=== PATIENT | female | born 1990 | race Caucasian/White ===

== ENCOUNTER 2016-10-02 19:49 | Emergency (ER) | payer OTHER ==
[~2016-10-02] VITALS: Ht 172.7 cm; Wt 90.9 kg
[2016-10-02 20:15] VITALS: BP 124/80; PULSE 131; RESP 16; O2SAT 100
--- NOTE | 2016-10-02 21:41 | ED.REPORT ---
HPI-Rash / Abscess Date of Service Oct 02, 2016 ED Provider: Julio C Brewer MD Pt is a 26 y/o female w/ a hx of IV drug abuse presenting to the ED c/o right calf pain secondary to rash onset this morning. The patient woke up today and noticed a red rash with swelling of the posterior right calf which is draining serosanguineous fluid. Pt denies fever, vomiting, myalgias. She lasted used drugs 4 days ago but did not inject into the site of swelling. She has been injecting for 6 months and has not previously had an abscess. Nursing Notes Stated Complaint: LEFT CALF PAIN Chief Complaint: Skin Rash/Abscess Nursing Notes Reviewed: Yes Allergies: Coded Allergies: codeine (Verified Allergy, Intermediate, hives, 10/02/16) Scheduled Cephalexin (Keflex) 500 Mg Capsule 500 MG PO QID Sulfamethoxazole/Trimeth 800-160 mg (Bactrim DS) 1 Each Tablet 1 TABLET PO BID General Time Seen by MD: 21:24 Chief Complaint Rash Hx Obtained From: Patient Arrived By: Walk-in Onset Occurred: 5 - 8 hours ago Symptom Duration: Since onset Location: : Lower extremity Quality: Painful Severity: Current: Moderate Severity: Maximum: Moderate Past Medical History Past Medical History IV drug abuse Past Surgical History None reported Smoking History Unknown if Ever Smoker Social History Drug Use: IV drugs Ambulatory Status Independent Review of Systems Constitutional: Denies: Chills, Fever Respiratory: Denies: Non-productive cough, Shortness of breath Cardiovascular: Denies: Chest pain, Dyspnea on exertion GI: Denies: Abdominal pain, Nausea, Vomiting Musculoskeletal: Reports: Extremity pain, Extremity swelling, Denies: Joint pain, Myalgia Skin: Reports Rash, Reports Swelling, Denies Itching Complete sys rev & neg: except as marked. Physical Exam Initial Vital Signs Vital Signs (First) Date Time Temp Pulse Resp B/P Pulse Ox O2 Delivery O2 Flow Rate FiO2 10/02/16 20:15 36.8 131 16 124/80 100 Room Air Initial VS: Reviewed, Vital signs abnormal Head / Eyes: Atraumatic, Normocephalic, PERRL ENT: Mucous membranes moist, Conjunctiva normal, No scleral icterus Neck: Supple, Full range of motion Respiratory: Breath sounds normal, Clear to auscultation, No respiratory distress Cardiovascular: Regular rate & rhythm, Heart sounds normal, Intact distal pulses Abdomen / GI: Soft, Non-tender Psychiatric: Mood/affect normal, Behavior normal, Normal thought content General/Constitutional: Awake, Alert, No acute distress, Cooperative, Not toxic appearing Appearance / Presentation: Positive: Uncomfortable Skin: Atraumatic, Warm, Dry Color / Condition: Positive: Rash present Rash / Lesion Notes: 5 x 5 cm area of diffuse erythema over right superior calf. No fluctuance. Very tender to touch. Re-Eval/Medical Decision Med Decision/Clinical Course 26-year-old female history of IV drug use with cellulitis possible early abscess left lower leg. There is no fluctuance. It is diffusely swollen and erythematous. Patient did not want an I&D at this time. She preferred trial of oral antibiotics. No systemic symptoms. She was given prescription for Bactrim and Keflex with return precautions. Re-Evaluation/Progress : Time of Eval: 21:53 Re-Evaluation/Progress Note: Pt rechecked. Informed pt of plan for treatment. Pt understands and agrees with plan for treatment. F/U instructions and RTER warnings given. All questions addressed. Counseled Regarding: Diagnosis, Need for follow-up, When/why to return to ED Discharge & Departure Impression: Primary Impression: Cellulitis Site of cellulitis: extremity Site of cellulitis of extremity: lower extremity Laterality: right Qualified Code: L03.115 - Cellulitis of right lower limb Additional Impression: IV drug abuse Disposition: Home Discharge Condition All VS Reviewed: Yes Condition: Stable Patient Instructions: Cellulitis (ED) Additional Instructions: Your rash is consistent with cellulitis, an infection of the skin. You chose to not have the area opened today. Cellulitis sometimes progresses towards abscesses especially in cases of injection drug use. I recommend you not use IV drugs. If you do choose to inject, you should make sure the injection site is sterile. Take the antibiotics as directed. Return to the emergency department if you develop fever, chills, body aches, vomiting, increasing size of the rash, if an abscess develops, increased swelling, increased pain, or for other concerning symptoms. It is important that you return if you do not improve with antibiotics as this can spread quickly. Follow-up with a primary care doctor on Wednesday. If you do not have on the [facility] would be happy to see you. Referrals: [facility] Scribe Attestation Portions of this note were transcribed by Jake Stone. I, Dr. Brewer personally performed the history, physical exam and medical decision-making; I reviewed and confirmed the accuracy of the information in the transcribed note. Signed by Harika Reyes, 10/02/16 - 2199 Julio C Brewer MD Oct 02, 2016 21:41 JAKE STONE Oct 02, 2016 21:48
[2016-10-02] MEDS ORDERED: SULF1TAB7 PO (21:51)
[2016-10-02] MEDS ORDERED: CEPH-512 PO (21:51)
[2016-10-02] MEDS ORDERED: Cephalexin Suspension 250 mg/5 mL 100 mL Suspension PO ONE (22:00)
[2016-10-02] MEDS ORDERED: Trimethoprim-Sulfa 160 mg-800 mg Tablet PO ONE (22:00)
[2016-10-02 22:13] VITALS: BP 142/67; PULSE 118; RESP 18; O2SAT 100
== END 2016-10-02 22:15 | disposition home or self-care (01) ==
LOC: SED 19:49
DX: L03.115 Cellulitis of right lower limb (principal); F19.10 Other psychoactive substance abuse, uncomplicated; Z88.5 Allergy status to narcotic agent

== ENCOUNTER 2016-11-03 01:38 | Inpatient (IN) | payer OTHER ==
[~2016-11-03] VITALS: Ht 172.7 cm; Wt 99.0 kg
[2016-11-03] VITALS (14 sets, daily range): BP systolic 91–142; BP diastolic 36–92; PULSE 84–125; RESP 16–20; O2SAT 93–100
[~2016-11-03 01:38] MED LIST: CEPH-512 PO; SULF1TAB7 PO
--- NOTE | 2016-11-03 02:12 | ED.REPORT ---
HPI-Rash / Abscess Date of Service Nov 03, 2016 ED Provider: Shaq Villegas MD Patient is a 26 year old female with a history of IV drug abuse and cellulitis who presents to the ED with an abscess to her left breast onset 5 days ago. Patient states that she first noticed redness of the inside of her breast, consistent with cellulitis. Two days days she noticed a blister on her inner breast, which is now draining fluid. Her redness has spread since onset and become painful. Patient reports taking some leftover Clindamycin at home and 800mg Ibuprofen at 0030. The patient was seen in the ED on October 02 for RLE cellulitis, and was started on Bactrim and Keflex. She admitted to IV heroin and methamphetamine abuse at that time but states that her infection was not associated with an injection site. Initially the patient did not admit to IV drug use during her visit today, however she did eventually admit to using heroin and methamphetamine. She states that she has only been using IV drugs for the past 6 months. The Patient is not currently or . Nursing Notes Stated Complaint: POSS CELLULITIS Chief Complaint: Skin Rash/Abscess Nursing Notes Reviewed: Yes Allergies: Coded Allergies: codeine (Verified Allergy, Intermediate, hives, 10/02/16) Scheduled Cephalexin (Keflex) 500 Mg Capsule 500 MG PO QID Sulfamethoxazole/Trimeth 800-160 mg (Bactrim DS) 1 Each Tablet 1 TABLET PO BID General Time Seen by MD: 02:09 Chief Complaint Abscess Hx Obtained From: Patient Arrived By: Walk-in Onset Occurred: 5 days ago Symptom Duration: Since onset Location: : Chest (breast) Quality: Painful Severity: Current: Moderate Severity: Maximum: Moderate Recent Healthcare: Recent doctor visit Similar Sx Previous: Yes Past Medical History Past Medical History IV drug abuse cellulitis Past Surgical History None reported Smoking History Unknown if Ever Smoker Social History Drug Use: IV drugs Other Social History: Good social support, Local resident Ambulatory Status Independent Review of Systems Constitutional: Denies: Chills, Fever Skin: Reports Rash (abscess left breast), Reports Swelling Complete sys rev & neg: except as marked. Physical Exam Initial Vital Signs Vital Signs (First) Date Time Temp Pulse Resp B/P Pulse Ox O2 Delivery O2 Flow Rate FiO2 11/03/16 01:42 36.9 125 18 142/92 100 Room Air Initial VS: Reviewed, Vital signs abnormal Head / Eyes: Atraumatic, Normocephalic, PERRL ENT: Conjunctiva normal, No scleral icterus Neck: Supple, Full range of motion Neurologic: Alert, Oriented, Nonfocal Psychiatric: Mood/affect normal, Behavior normal, Normal thought content General/Constitutional: Awake, Alert, No acute distress Skin: Warm, Dry Abscess Notes: Lower half of the left breast is erythematous. Inner lower quadrant of the left breast has induration and abscess, with breakdown of skin oozing purulent material. Difficult on examination to tell how deep the abscess extends. ENT: Airway patent Dental / Gums: Positive: Decay extensive, Dentition poor Respiratory / Chest: Breath sounds NL, Breath sounds = bilat, No respiratory distress, No rales, No rhonchi, No wheezing Cardiovascular: Regular rhythm, Heart sounds NL, No murmurs Heart Rate / Rhythm: Positive: Tachycardia Interpretation & Diagnostics Interpretation & Diagnostics: Urine Tox Dip: Positive for Marijuana, Methamphetamine, Opiates, Oxycodone, and Amphetamines. Lab Results Interpretation Result Diagram: 11/03/16 0213 11/03/16 0213 Test 11/03/16 01:55 11/03/16 02:13 Hold Urine Received (Received) White Blood Count 10.0th/mm3 (3.8-10.1) Red Blood Count 4.60mil/mm3 (3.90-5.20) Hemoglobin 12.3g/dL (12.0-15.6) Hematocrit 38.1% (35.0-46.0) Mean Corpuscular Volume 82.8fL (81-100) Mean Corpuscular Hemoglobin 26.7pg (27.0-35.0) Mean Corpuscular Hemoglobin Concent 32.3% (32.0-37.0) Red Cell Distribution Width 13.8% (12.3-15.4) Platelet Count 367bil/L (150-400) Neutrophils (%) (Auto) 63.5% (40-74) Lymphocytes (%) (Auto) 26.1% (14-46) Monocytes (%) (Auto) 8.4% (4-12) Eosinophils (%) (Auto) 1.6% (0-5) Basophils (%) (Auto) 0.2% (0-3) Sodium Level 138mEq/L (134-144) Potassium Level 3.8mEq/L (3.5-5.2) Chloride Level 98mEq/L (97-108) Carbon Dioxide Level 23mmol/L (18-29) Blood Urea Nitrogen 9mg/dL (6-20) Creatinine 0.49mg/dL (0.57-1.00) Estimat Glomerular Filtration Rate 220mL/min (>59) Glucose Level 106mg/dL (60-99) Lactic Acid Level 0.9mmol/L (0.4-2.0) Calcium Level 9.0mg/dL (8.5-10.1) Total Bilirubin 0.7mg/dL (0.0-1.2) Aspartate Amino Transf (AST/SGOT) 65U/L (0-50) Alanine Aminotransferase (ALT/SGPT) 68U/L (0-32) Alkaline Phosphatase 88U/L (25-150) Total Protein 7.6g/dL (6.4-8.4) Albumin 3.8g/dL (3.4-5.0) Re-Eval/Medical Decision Med Decision/Clinical Course 26-year-old female who uses IV methamphetamine and heroin. She presents now with infected left breast with a draining abscess. She is tachycardic but not febrile. Her white count and lactic acid are not elevated. IV access was obtained her labs were drawn and she was sent for contrast CT scan to delineate the extent of the abscess in the pectoral area. The IV blew and we were unable to get another IV and because of her extensive IV drug use. Her case was discussed with Dr. Mikey Goodwin, surgeon, and Dr. Lang, hospitalist. She will be admitted to the hospital service with surgical consultation. She will stay in the emergency room until IV access is obtained by IV therapy and she has her CT done. It is anticipated that surgery will drain her abscess either at the bedside or in the OR depending upon the findings of the physical exam and CT scan. She was also given a referral card to [facility] with the priority access line phone number. Source of Hx: Old records Re-Evaluation/Progress : Time of Eval: 05:55 Patient Status: Condition improved Re-Evaluation/Progress Note: Rechecked the patient. The patient's line infiltrated and CT scan of her chest has not yet been obtained. She will receive a PICC line. Patient will be admitted to the hospital for further care, started on IV antibiotics. Patient understands and agrees with this plan. Spoke to her about her IV heroin abuse. Discussed Suboxone therapy and referral to [facility]. All questions were addressed. Consultation #1: Referral / Consult Name: Mikey Goodwin MD Consulted With: Surgeon Call Returned at: 05:43 Senior Center Manager: Will see patient, Agrees with eval, Agrees with plan Note: Spoke with Dr. Goodwin, surgeon, who agrees to act as consult during the patient's hospital admission. He will see the patient this morning. Consultation #2: Referral / Consult Name: Sandra Lang DO Consulted With: Hospitalist Call Returned at: 05:52 Senior Center Manager: Will see patient, Agrees with eval, Agrees with plan, Accepts admit Note: Spoke with Dr. Lang, hospitalist, who agrees to accept admit. Counseled Regarding: Diagnosis, Lab results, Need for admission Discharge & Departure Impression: Primary Impression: Left breast abscess Additional Impression: IV drug abuse Disposition: ADMITTED TO HOSPITAL Discharge Condition All VS Reviewed: Yes Condition: Stable Scribe Attestation Portions of this note were transcribed by Gilda Aceves. I, Dr. Villegas personally performed the history, physical exam and medical decision-making; I reviewed and confirmed the accuracy of the information in the transcribed note. Signed by: Harika Chun, 11/03/2016 0607 Shaq Villegas MD Nov 03, 2016 02:11 Gilda Aceves Nov 03, 2016 02:22
[2016-11-03 02:21] LABS: BASOPHILS % (AUTO) 0.2 % (0-3); EOSINOPHILS % (AUTO) 1.6 % (0-5); MONOCYTES % (AUTO) 8.4 % (4-12); Mean Corpuscular Hemoglobin 26.7 pg (27.0-35.0); Mean Corpuscular Volume 82.8 fL (81-100); NEUTROPHILS % (AUTO) 63.5 % (40-74); Platelet Count 367 bil/L (150-400)
[2016-11-03] MEDS ORDERED: Vancomycin Dose per Pharmacist XX ONE (02:32)
[2016-11-03] MEDS ORDERED: Vancomycin Inj 2,000 MG in 0.9% Sodium Chloride 500 ML IV ONE (02:35)
[2016-11-03] MEDS ORDERED: HYDROmorphone 0.5 mg/0.5 mL iSecure Syringe IVPUSH PRN (03:20)
[2016-11-03] MEDS ORDERED: Piperacillin-Tazo 3.375 Gm Inj 3.375 GM in Dextrose 5% Minibag Plus 50 ML IV ONE (03:20)
[2016-11-03] MEDS ORDERED: Clindamycin Inj 900 MG in IV Premix 1 EACH IV ONE (06:35)
[2016-11-03] MEDS ORDERED: Meropenem Inj 2,000 MG in IV Premix 1 EACH IV ONE (06:35)
[2016-11-03] MEDS ORDERED: HYDROmorphone 1 mg/mL Inj IM ONE (08:15)
--- NOTE | 2016-11-03 08:57 | PCM.CONSUR ---
Subjective Date of Service: Nov 03, 2016 History of Present Illness Patient is a 26 year old female with a history of IV drug abuse and cellulitis who presents to the ED with an abscess to her left breast onset 5 days ago. Patient states that she first noticed redness and irritation on the inside of her breast for 3 days. Two days ago she noticed a blister on her inner breast about the size of a nickel and bright red. Patient reports taking some leftover Clindamycin at home and 800mg Ibuprofen at 0030. The patient was seen in the ED on October 02 for RLE cellulitis, and was started on Bactrim and Keflex. She admitted to IV heroin and methamphetamine abuse at that time but states that her infection was not associated with an injection site. She states that she has only been using IV drugs for the past 6 months. The Patient is not currently or . The abscess measures approximately 7cm x 7xm with crusted surface and active weeping. There is diffuse erythema of most of the lower breast on the left side. She states it is very painful. She denies fever, chills, nausea, vomiting , dizziness, shortness of breath. She reports thirst. Reason for Consultation Left breast abscess. Allergy Allergies: Coded Allergies: codeine (Verified Allergy, Intermediate, hives, 11/03/16) Medications Hypertension Medication: No Home Meds Incl Beta Blockers: No No Active Prescriptions or Reported Meds Past Surgical History Surgeries: No Patient/Family Past Surgical: Denies:: Anesthesia Reactions, Blood Transfuse Reaction, Blood Transfusions, Malignant Hyperthermia Social History Occupation: Unemployed. Hx Alcohol Use: No Hx Substance Use: Yes (multiple drugs) PMH Cardiovascular History Cardiovascular History: Denies:: Congestive Heart Failure Hypertension Respiratory Respiratory History: Denies:: Tuberculosis Other History Diabetes: No Social History Hx Alcohol Use: NoHx Substance Use: Yes (multiple drugs)Hx Tobacco Use: No Smoking Status: Unknown if Ever Smoker Family History Family History: Patients mother is adopted and is not aware of any family medical conditions. Objective Exam Vital Signs & I/O Vital Sign- Last 8 Hours Date Time Temp Pulse Resp B/P Pulse Ox O2 Delivery O2 Flow Rate FiO2 11/03/16 06:39 37.2 88 18 142/74 98 Room Air 11/03/16 04:27 36.7 84 16 128/82 98 Room Air 11/03/16 01:42 36.9 125 18 142/92 100 Room Air Lab & Micro Results Laboratory Tests Test 11/03/16 01:55 11/03/16 02:13 Hold Urine Received (Received) White Blood Count 10.0th/mm3 (3.8-10.1) Red Blood Count 4.60mil/mm3 (3.90-5.20) Hemoglobin 12.3g/dL (12.0-15.6) Hematocrit 38.1% (35.0-46.0) Mean Corpuscular Volume 82.8fL (81-100) Mean Corpuscular Hemoglobin 26.7pg (27.0-35.0) Mean Corpuscular Hemoglobin Concent 32.3% (32.0-37.0) Red Cell Distribution Width 13.8% (12.3-15.4) Platelet Count 367bil/L (150-400) Neutrophils (%) (Auto) 63.5% (40-74) Lymphocytes (%) (Auto) 26.1% (14-46) Monocytes (%) (Auto) 8.4% (4-12) Eosinophils (%) (Auto) 1.6% (0-5) Basophils (%) (Auto) 0.2% (0-3) Sodium Level 138mEq/L (134-144) Potassium Level 3.8mEq/L (3.5-5.2) Chloride Level 98mEq/L (97-108) Carbon Dioxide Level 23mmol/L (18-29) Blood Urea Nitrogen 9mg/dL (6-20) Creatinine 0.49mg/dL (0.57-1.00) Estimat Glomerular Filtration Rate 220mL/min (>59) Glucose Level 106mg/dL (60-99) Lactic Acid Level 0.9mmol/L (0.4-2.0) Calcium Level 9.0mg/dL (8.5-10.1) Total Bilirubin 0.7mg/dL (0.0-1.2) Aspartate Amino Transf (AST/SGOT) 65U/L (0-50) Alanine Aminotransferase (ALT/SGPT) 68U/L (0-32) Alkaline Phosphatase 88U/L (25-150) Total Protein 7.6g/dL (6.4-8.4) Albumin 3.8g/dL (3.4-5.0) Microbiology 11/03/16 Blood Culture, Received Pending 11/03/16 Gram Stain, Received Pending 11/03/16 Culture & Sensitivity, Received Pending Result Diagram: 11/03/16 0213 11/03/16 0213 Review of Systems: A comprehensive review of systems was conducted with the patient and found to be negative except as above in the History of Present Illness. H&P Surgical Exam Exam Additional Information General: Pt is awake in bed, obese and Well-developed. Appropriately interactive , HEENT: Normocephalic, atraumatic. External ears without defect. Pupils equal, round, responsive. Oropharynx free of erythema with moist mucosa. poor oral health with mild decayed dentation. Cardiovascular: Mildly tachycardic rate with normal rhythm with no murmurs, rubs , or gallops appreciated Pulmonary: Clear to auscultation bilaterally with no crackles, wheezes, or rhonchi. Normal respiratory effort with no use of accessory muscles. Abdomen: Bowel tones present. Soft, nontender, nondistended. No hepatosplenomegaly or masses appreciated. Extremities: No clubbing, cyanosis, edema, or lymphadenopathy appreciated. Skin: Normal temperature, turgor, and texture; no rash, ulcers, or subcutaneous nodules appreciated. Neurological: Cranial nerves grossly intact. Normal muscle strength, tone, and bulk. Reflexes, coordination, and sensory function within normal limits. No known gait impairment. Psychiatric: Normal mood and affect. Alert and oriented to person, place, and time. Breast: Left breast 7cm x 7cm circular abscess with crusted and weeping surface. Erythema of most of lower left breast. Assessment & Plan Assessment Medial aspect of lower Left Breast abscess. Hx of IV drug use. Hx of Methamphetamine use. Plan: Recommend Incision and drainage with general anesthesia. Vitals Within normal limits. No allergies reported. With followup IV antibiotics managed by the medicine team. Resuscitation Status: CPR: Attempt Resuscitation Attending Statement: I personally examined the pt and I agree with Dr. Rogers's assessment and plan. To OR for I & D. CHAKA ROGERS DO Nov 03, 2016 08:38 Mikey Goodwin MD Nov 05, 2016 08:05
--- NOTE | 2016-11-03 10:00 | DRSVH ---
PROCEDURE: X-RAY CHEST ONE VIEW, PORTABLE ([id number]) INDICATIONS: central line placement TECHNIQUE: One view of the chest was acquired. COMPARISON: None. FINDINGS: Surgical changes and devices: There is a right-sided central line catheter with the tip overlying the low superior vena cava near the right atrial junction. Lungs and pleura: No pleural effusions or pneumothorax. Lungs are clear. Mediastinum: Mediastinal contours appear normal. Heart size is normal. Bones and chest wall: No suspicious bony lesions. Overlying soft tissues appear unremarkable. IMPRESSION: 1. Right-sided central line catheter is position with the tip overlying the atriocaval junction. 2. No pneumothorax. Dictated by: Migue Maravilla M.D. on 11/03/2016 at 8:57 Approved by: Migue Maravilla M.D. on 11/03/2016 at 8:58
--- NOTE | 2016-11-03 10:41 | PCM.PROC ---
Procedure Note Date of Service: Nov 03, 2016 Pre Procedure Diagnosis: Central venous access into Right Internal jugular Vein. Post Procedure Diagnosis: Central venous access of right Internal jugular vein. Procedure: Central venous line placement in Right IJ. Provider and Supervisor Belt And Link Assembly: Provider Dr. Theo Turner Supervisor Belt And Link Assembly: Dr. Josué Romo, PGY1 IM. Indication for Procedure: Central IV access and IV antibiotics. Procedural Analgesia: 1% Subcutaneous Lidocaine. Procedure Details: Date: 11/03/2016 Time: 0900 Indication: Hemodynamic monitoring/Intravenous access Resident: Dr. Josué Romo Attending: Dr. Theo Turner Procedure and site verified Patient was placed prone and in Trendelenburg position with chin rotated ~20 degrees left and appropriate for right sided internal jugular vein cannulation. Central line kit was opened and prepared. Patient was prepped and draped in the usual sterile fashion. 1% Lidocaine was used to anesthetize the surrounding skin area. A triple lumen 9-Mexican catheter was introduced into the right internal jugular vein using the Seldinger technique and under ultrasound guidance. The catheter was threaded smoothly over the guide wire and appropriate dark nonpulsatile blood return was obtained. Each lumen of the catheter was evacuated of air, aspirated of blood, and flushed with sterile saline. The catheter was then secured to the skin and a sterile dressing applied. Perfusion to the extremity distal to the point of catheter insertion was checked and found to be adequate. Dr. Theo Turner and Dr. Josué Romo was present for the entire procedure. Chest X-ray following the procedure was negative for pneumothorax, hemothroax and showed appropriate IJ catheter placement without crossing midline or entering the right atrium with verification by on-call radiologist. Estimated Blood Loss: ~ 10ml. The patient tolerated the procedure well and there were no complications. JOSUÉ ROMO DO Nov 03, 2016 10:10 Brigido Turner DO Nov 03, 2016 14:26
[2016-11-03] MEDS ORDERED: Polyethylene Glycol (PEG) 17 Gm Powder PO PRN (11:35)
[2016-11-03] MEDS ORDERED: Alum-Mag Hydrox-Simeth 30 mL Suspension PO PRN (11:35)
[2016-11-03] MEDS ORDERED: Ondansetron 2 mg/mL 2 mL Inj IVPUSH PRN ×2 (11:35→13:00)
--- NOTE | 2016-11-03 11:45 | NUR ---
Admit Pt admitted to floor. A&Ox3. Pt is able to ambulate. Currently c/o left breast pain at 8/10. Hospitalist in room and Toradol IV ordered for pain. Bed locked in low position and call light within reach. Will continue to monitor.
[2016-11-03] MEDS ORDERED: Lactated Ringer's 500 ML IV PRN (12:56)
[2016-11-03] MEDS ORDERED: Lactated Ringer's 1,000 ML IV SCH (12:56)
[2016-11-03] MEDS ORDERED: Lactated Ringer's 1,000 ML IV ONE ×2 (12:56→13:02)
--- NOTE | 2016-11-03 12:56 | PCM.HPANE ---
Patient Data Date of Service: Nov 03, 2016 Surgeon Admitting Provider:Sandra Lang DO Attending Provider:Sandra Lang DO Primary Care Physician:Nopcp Other Provider: Reason for Visit Left Breast Abscess Ht/WT & BMI Height (Feet): 5 Height (Inches): 8.00 Weight (Kilograms): 99.000 Body Mass Index 33.08 Allergies Coded Allergies: codeine (Verified Allergy, Intermediate, hives, 10/02/16) Past Anesthesia History Anesthesia History: Denies:: Anesthesia Reactions, Malignant Hyperthermia Diabetes History Hx Diabetes?: No Medications Hypertension Medication: No Home Meds Incl Beta Angie: No Active Scripts Cephalexin (Keflex)500 Mg [id number] Mg PO QID 10 Days Prov:Julio C Brewer MD 10/02/16 Sulfamethoxazole/Trimeth 800-160 mg (Bactrim DS)1 Each Tablet1 Tablet PO BID # 20 TABLET Prov:Julio C Brewer MD 10/02/16 History Hx of Heart Problems?: No Cardiovascular History: Denies:: Congestive Heart Failure Hypertension Hx of Respiratory Problem?: No Respiratory History: Denies:: Tuberculosis Hx Neurologic Problems?: No Hx Surgeries?: No History Blood Transfusions: Positive for:: Accept Blood Products? Blood Transfuse Reaction Denies:: Blood Transfusions Hx Diabetes: No Occupation: Unemployed. Hx Alcohol Use: NoHx Substance Use: Yes (Heroin, meth, THC) Smoking Status: Unknown if Ever Smoker Have You Smoked inLast 12 mo: No Stop/Bang Risk Assessment Category Category 1A: Patient has history of documented sleep apnea, and HAS NOT received any narcotic, sedative or anesthesia administration during this stay. Category 1B: Patient has history of documented sleep apnea, and HAS received any narcotic , sedative or anesthesia administration during this stay Category 2: Patient has SUSPECTED Obstructive Sleep Apnea, and HAS received any narcotic , sedative or anesthesia administration during this stay. Category 3: Patient has SUSPECTED Obstructive Sleep Apnea and HAS NOT received narcotic, sedative or anesthesia administration during this stay. Category 4: Outpatient in Procedural Areas with known sleep apnea or who screen positive for High Risk via the STOP/BANG questionnaire. Exam Exam Vital Signs Vital Signs Date Time Temp Pulse Resp B/P Pulse Ox O2 Delivery O2 Flow Rate FiO2 11/03/16 11:30 36.7 107 20 124/83 100 Room Air 11/03/16 06:39 37.2 88 18 142/74 98 Room Air General Appearance: Alert, Oriented X3, Cooperative, Moderate Distress (pain 8/ 10 now) HEENT/AIRWAY: MP 2, Other (very poor dentition) Lungs: Normal Air Movement Heart: Exam Unremarkable Meds/Labs/Diagnostics Admission Meds Current Medications Pharmacy Consult 1 ea 1 ea ONCE ONCE XX Last administered on 11/03/16 03:12; Start 11/03/16 at 02:32; Stop 11/03/16 at 02:33; Status DC Vancomycin HCl 2000 mg/Sodium Chloride 500 ml @ 250 mls/hr ONCE ONCE IV Last administered on 11/03/16 03:12; Start 11/03/16 at 02:35; Stop 11/03/16 at 04:34 ; Status DC Piperacillin Sod/ Tazobactam Sod 3.375 gm/Dextrose/ Water 50 ml @ 100 mls/hr ONCE ONCE IV Last administered on 11/03/16 03:43; Start 11/03/16 at 03:20; Stop 11/03/16 at 06:33; Status DC Clindamycin Phosphate/ Dextrose/Premix (Cleocin Inj/IV Premix) 50 ml @ 100 mls/ hr ONCE ONCE IV Last administered on 11/03/16 10:34; Start 11/03/16 at 06:35 ; Stop 11/03/16 at 07:04; Status DC Labs Test 11/03/16 01:55 11/03/16 02:13 Hold Urine Received (Received) White Blood Count 10.0th/mm3 (3.8-10.1) Red Blood Count 4.60mil/mm3 (3.90-5.20) Hemoglobin 12.3g/dL (12.0-15.6) Hematocrit 38.1% (35.0-46.0) Mean Corpuscular Volume 82.8fL (81-100) Mean Corpuscular Hemoglobin 26.7pg (27.0-35.0) Mean Corpuscular Hemoglobin Concent 32.3% (32.0-37.0) Red Cell Distribution Width 13.8% (12.3-15.4) Platelet Count 367bil/L (150-400) Neutrophils (%) (Auto) 63.5% (40-74) Lymphocytes (%) (Auto) 26.1% (14-46) Monocytes (%) (Auto) 8.4% (4-12) Eosinophils (%) (Auto) 1.6% (0-5) Basophils (%) (Auto) 0.2% (0-3) Sodium Level 138mEq/L (134-144) Potassium Level 3.8mEq/L (3.5-5.2) Chloride Level 98mEq/L (97-108) Carbon Dioxide Level 23mmol/L (18-29) Blood Urea Nitrogen 9mg/dL (6-20) Creatinine 0.49mg/dL (0.57-1.00) Estimat Glomerular Filtration Rate 220mL/min (>59) Glucose Level 106mg/dL (60-99) Lactic Acid Level 0.9mmol/L (0.4-2.0) Calcium Level 9.0mg/dL (8.5-10.1) Total Bilirubin 0.7mg/dL (0.0-1.2) Aspartate Amino Transf (AST/SGOT) 65U/L (0-50) Alanine Aminotransferase (ALT/SGPT) 68U/L (0-32) Alkaline Phosphatase 88U/L (25-150) Total Protein 7.6g/dL (6.4-8.4) Albumin 3.8g/dL (3.4-5.0) Plan Impression Patient chart reviewed, patient interviewed and anesthestic plan with risks, benefits, and alternatives discussed, and informed consent obtained. ASA Physical Status: ASA3 Severe Disease (IVDA) Anesthetic Plan: GA Bene/Risks/Altern/Consents: Yes HP Complete Prior to Induction: Yes Pro Lassiter MD Nov 03, 2016 12:56
[2016-11-03] MEDS ORDERED: fentaNYL-PF 50 mCg/mL 2 mL Inj IVPUSH PRN (13:00)
[2016-11-03] MEDS ORDERED: EPHEDrine Sulfate 50 mg/mL Inj IVPUSH PRN (13:00)
[2016-11-03] MEDS ORDERED: Dexamethasone 4 mg/mL Inj IVPUSH PRN (13:00)
[2016-11-03] MEDS ORDERED: Phenylephrine 10,000 mCg/mL Inj IVPUSH PRN (13:00)
[2016-11-03] MEDS ORDERED: Labetalol 5 mg/mL 4 mL Inj IV PRN (13:00)
[2016-11-03] MEDS ORDERED: MetoCLOpramide 5 mg/mL 2 mL Inj IVPUSH PRN (13:00)
[2016-11-03] MEDS ORDERED: Atropine 0.4 mg/mL Inj IVPUSH PRN (13:00)
[2016-11-03] MEDS ORDERED: Ondansetron 2 mg/mL 2 mL Inj ONE (13:42)
[2016-11-03] MEDS ORDERED: Dexamethasone 4 mg/mL Inj ONE (13:42)
[2016-11-03] MEDS ORDERED: fentaNYL-PF 50 mCg/mL 2 mL Inj ONE (13:42)
[2016-11-03] MEDS ORDERED: HYDROmorphone 2 mg/mL Inj ONE (13:42)
[2016-11-03] MEDS ORDERED: Propofol 10,000 mCg/mL 20 mL Inj ONE (13:42)
[2016-11-03] MEDS ORDERED: Lidocaine PF 1% 30 mL Inj ONE (13:42)
--- NOTE | 2016-11-03 13:51 | PCM.ANEP1 ---
Post Anesthesia Phase 1 PACU Phase 1 Assessment Date of Service: Nov 03, 2016 Vital Signs Vital Signs Date Time Temp Pulse Resp B/P Pulse Ox O2 Delivery O2 Flow Rate FiO2 11/03/16 11:30 36.7 107 20 124/83 100 Room Air 11/03/16 06:39 37.2 88 18 142/74 98 Room Air Anesthetic Administered: GA Level of Alertness: Drowsy, not talking Pain: No Nausea or Vomiting: No Airway Device: Oralpharangeal Airway Oxygen Delivery: Nasal Cannula Lungs: Normal Air Movement Pro Lassiter MD Nov 03, 2016 13:51
--- NOTE | 2016-11-03 14:09 | NUR ---
Item found in rubina area Skin assessment done in the OR after induction after multiple bruises and abrasions noted. During the skin assessment, it was noted that there was a wadded blue glove covered in a paper towel that was secured in a hair tie. The wadded item was tucked in between the patients legs in the rubina area of her underwear. Item was removed. Item was left unopened and placed in a specimen bag with a patient label. Charge nurse notified. Item was given to security who confirmed that is was drug paraphernalia.
--- NOTE | 2016-11-03 14:15 | PCM.ANEP2 ---
Post Anesthesia Evaluation ASA/CMS Post Anesthesia Date of Service: Nov 03, 2016 VS in Patient's Normal Range?: Yes Resp Stable; Airway Patent?: Yes CV Function & Hydration Stable: Yes Mental Status Recovered?: Yes Pain control Satisfactory?: Yes N/V Control Satisfactory?: Yes Pro Lassiter MD Nov 03, 2016 14:15
--- NOTE | 2016-11-03 14:18 | NUR ---
Social Work-attempted assessment/CD assessment: Data:EMR Reviewed. Pt is a 46 y/o female who was admitted on 10/31/16 for left leg cellulitis per H&P. Pt's insurance is [facility] and PCP is LEATHA Rodriguez. EMR reviewed. SW attempted to see pt today, but SW updated by RN that pt is currently in the OR having I&D. Pt has history of IV drug use, heroin and meth. SW to follow up with CD assessment when appropriate. SW will continue to follow. Assessment:Pt who is independent at baseline. Plan:SW to follow up with CD assessment tomorrow. SW will continue to follow. SHEBA Urrutia
[2016-11-03] MEDS ORDERED: Sodium Chloride LOK Flush 10 mL Syringe IVFLUSH PRN ×2 (16:50)
--- NOTE | 2016-11-03 17:27 | NUR ---
POST OP Patient returned to floor at 1445, from I/D of left breast abscess. LABS- AST 65, ALT 68, VSS NEURO- Initially drowsy but oriented x3. CVS- Sinus tach, 105,denies chest pain. PLUM-RA GI-Advance as tolerated, denies nausea. -BR voided 60ml SKIN- Left breast ABD c/d/i PAIN- 30mg Toradol 10/02 IVF-LR 125 IJ X3 PLAN- Continue IV antibiotics
[2016-11-03] MEDS: Vancomycin Dose per Pharmacist XX SCH (18:45)
--- NOTE | 2016-11-03 18:45 | PCM.HPMED ---
Subjective Date of Service Nov 03, 2016 Primary Provider: Admitting Physician: Sandra Lang DO Primary Care Physician: Javier Attending Physician: Sandra Lang DO Allergies Coded Allergies: codeine (Verified Allergy, Intermediate, hives, 11/03/16) PMH Social History Occupation: Unemployed. Hx Alcohol Use: No Hx Substance Use: Yes (multiple drugs) Hx Tobacco Use: No Smoking Status: Unknown if Ever Smoker Exam Vital Signs Vital Sign - Last Date Time Temp Pulse Resp B/P Pulse Ox O2 Delivery O2 Flow Rate FiO2 11/03/16 06:39 37.2 88 18 142/74 98 Room Air Lab and Diagnostics Result Diagram: 11/03/1621211/03/16212 Assessment & Plan HPI: Patient is a 26-year-old female who presented to the emergency room with the complaint of left breast pain. The patient states that for the last 5 days she has noticed an increasing lesion on her left breast with increasing warmth and redness. The patient stated that on day 3 she noticed a nickel-sized lesion that had pus coming from it she expressed the pus and she was told that this would help to improve the lesion. The patient stated that she did have some leftover clindamycin from her previous dental procedure and took 3 clindamycin pills with no improvement. The patient stated that today she noticed an increase in warmth and a significantly increased in size of the lesion and decided to come to the emergency room. The patient stated that she uses IV drugs however she has not injected into that breast but she did inject into the right breast. Patient reports that the left breast has had increasing tenderness to palpation. Patient denies any chest pain, shortness of breath, nausea, vomiting, diarrhea. Home medications: None Allergies: Codeine: With reaction of hives PMHx: None SHx: None FHx: Patients mother is adopted and is not aware of any family medical conditions father's history is also unknown , SocHx: Occupation: Unemployed Tobacco history: Patient denies Alcohol use: Patient denies Drug use: Patient reports usage of meth, heroin, marijuana ROS: A complete review of systems was performed or attempted to be performed. Please see HPI for pertinent positives, all other systems are negatives. Physical Exam: GEN: Patient was awake, alert, responding appropriately to questions HEENT: Pupils equal round and reactive to light, extraocular eye muscles intact , Neck soft supple, trachea midline, nomocephalic/atraumatic CV: +S1/S2, regular rate and rhythm, no murmurs auscultated Breast: Right breast positive ecchymoses secondary to needle injection, left breast significant erythema and edema with tenderness to palpation a 6 x 4 lesion was noted currently draining purulent fluid Respiratory: CTAB, no wheezes, rales, rhonchi GI: +bowel sounds x4, soft, compressible, nontender to palpation EXT: no clubbing, cyanosis, edema Neuro: Cranial nerves II-XII grossly intact Psych: mood and affect were appropriate Assessment and Plan 26-year-old female current IV drug user presents with a left breast abscess Left breast abscess -IV meropenem, clindamycin, Zosyn, and vancomycin one-time dose given in the ED -Continue Zosyn and vancomycinzo -CT of the left breast -IV Toradol for pain control -MRSA screen -Consult general surgery (Dr. Goodwin) for possible I&D -Consult infectious disease (Dr. Dee) -Continue to monitor IV drug abuse -nutrition worker to follow this patient has expressed a desire to quit drug abuse Diet: Regular DVT prophylaxis: Lovenox Code Status: Full code Resuscitation Status: CPR: Attempt Resuscitation Viv Casey DO Nov 03, 2016 11:38
--- NOTE | 2016-11-03 19:47 | PCM.CONPHA ---
Subjective Date of Service: Nov 03, 2016 Requesting Provider: Viv Casey DO Reason for Pharmacy Consult: Vancomycin Dosing Objective Vital Signs Date Time Temp Pulse Resp B/P Pulse Ox O2 Delivery O2 Flow Rate FiO2 11/03/16 15:23 36.3 105 16 115/81 99 11/03/16 14:29 100 18 129/60 94 Room Air 11/03/16 14:14 102 16 122/49 100 Room Air 11/03/16 14:10 105 17 117/49 100 Room Air 11/03/16 14:06 36.7 100 16 104/42 96 Simple Mask 8 11/03/16 14:00 101 16 100/42 96 Simple Mask 8 11/03/16 13:55 102 16 100/40 96 Simple Mask 8 11/03/16 13:51 Nasal Cannula 11/03/16 13:50 102 17 95/39 95 Simple Mask 8 11/03/16 13:45 36.4 104 16 91/36 93 Simple Mask 8 11/03/16 11:30 36.7 107 20 124/83 100 Room Air 11/03/16 06:39 37.2 88 18 142/74 98 Room Air 11/03/16 04:27 36.7 84 16 128/82 98 Room Air 11/03/16 01:42 36.9 125 18 142/92 100 Room Air Weight (Kilograms): 99.000 Height (Feet): 5 Height (Inches): 8.00 Test 11/03/16 01:55 11/03/16 02:13 Hold Urine Received (Received) White Blood Count 10.0th/mm3 (3.8-10.1) Red Blood Count 4.60mil/mm3 (3.90-5.20) Hemoglobin 12.3g/dL (12.0-15.6) Hematocrit 38.1% (35.0-46.0) Mean Corpuscular Volume 82.8fL (81-100) Mean Corpuscular Hemoglobin 26.7pg (27.0-35.0) Mean Corpuscular Hemoglobin Concent 32.3% (32.0-37.0) Red Cell Distribution Width 13.8% (12.3-15.4) Platelet Count 367bil/L (150-400) Neutrophils (%) (Auto) 63.5% (40-74) Lymphocytes (%) (Auto) 26.1% (14-46) Monocytes (%) (Auto) 8.4% (4-12) Eosinophils (%) (Auto) 1.6% (0-5) Basophils (%) (Auto) 0.2% (0-3) Sodium Level 138mEq/L (134-144) Potassium Level 3.8mEq/L (3.5-5.2) Chloride Level 98mEq/L (97-108) Carbon Dioxide Level 23mmol/L (18-29) Blood Urea Nitrogen 9mg/dL (6-20) Creatinine 0.49mg/dL (0.57-1.00) Estimat Glomerular Filtration Rate 220mL/min (>59) Glucose Level 106mg/dL (60-99) Lactic Acid Level 0.9mmol/L (0.4-2.0) Calcium Level 9.0mg/dL (8.5-10.1) Total Bilirubin 0.7mg/dL (0.0-1.2) Aspartate Amino Transf (AST/SGOT) 65U/L (0-50) Alanine Aminotransferase (ALT/SGPT) 68U/L (0-32) Alkaline Phosphatase 88U/L (25-150) Total Protein 7.6g/dL (6.4-8.4) Albumin 3.8g/dL (3.4-5.0) Assessment/Plan Assessment/Plan Vanco per Rx Indication: Cellulitis; MRSA? Vanco Trough Goal: 10 - 15; Vd 59.4 LD 200-mg given @0312; new order received this evening; will start 1500mg q8h eTrough @ SS: 13; 1st trough to be drawn @ 1900 tomorrow Stephen Molina PharmD Nov 03, 2016 19:47
[2016-11-03] MEDS: Vancomycin Inj 1,500 MG in 0.9% Sodium Chloride 500 ML IV SCH (20:25)
[2016-11-03] MEDS: HYDROmorphone 1 mg/mL Inj IVPUSH PRN (20:25)
--- NOTE | 2016-11-03 21:33 | DRSVH ---
PROCEDURE: CT CHEST WITH CONTRAST ([id number]) INDICATIONS: large breast abscess, ? pectoralis extension TECHNIQUE: After the administration of intravenous contrast, 5 mm thick sections acquired from the pulmonary api moni to the posterior costophrenic angles. 7 mm thick coronal and sagittal MIP reformats were acquire d. For radiation dose reduction, the following was used: automated exposure control, adjustment of mA and/or kV according to patient size. COMPARISON: None. FINDINGS: Image quality: Excellent. Lungs and pleura: Patchy opacities are present at the left apex. A the lungs are otherwise clear. No pleural effusion or pneumothorax. Mediastinum: Heart size is normal. No pericardial effusion. No mediastinal or hilar adenopathy by size criteria. Thoracic aorta and central pulmonary arteries are normal in size. Esophagus is wai l in caliber. No hiatal hernia. Bones and chest wall: There is a superficial defect within the skin overlying the upper inner quadra nt of the left breast. There is diffuse skin thickening of the left breast. There is no fluid collect ion amenable to percutaneous drainage. There is no extension into the deep subcutaneous fat or the un derlying pectoralis musculature. No suspicious bony lesions. No vertebral body compression fractures . No axillary or supraclavicular adenopathy by size criteria. Thyroid gland is unremarkable the. Abdomen: Visualized upper abdominal solid organs appear normal. Upper abdominal bowel loops are nor mal in caliber. IMPRESSION: 1. Superficial cutaneous and subcutaneous defect within the left breast with diffuse skin thickening throughout the breast. Given patient age, the skin thickening is likely secondary to infection; howev er underlying inflammatory neoplasm cannot be excluded and followup to resolution is recommended. The re is no fluid collection amenable to drainage. There is no extension into the underlying pectoralis musculature. 2. Trace patchy opacities at the left apex which may be associated with inflammation or infection. Fo wadewagus recommended. Dictated by: Daisha Thorpe M.D. on 11/03/2016 at 21:27 Approved by: Daisha Thorpe M.D. on 11/03/2016 at 21:31
[2016-11-03] MEDS: Piperacillin-Tazo 3.375 Gm Inj 3.375 GM in Dextrose 5% Minibag Plus 50 ML IV SCH (22:22)
--- NOTE | 2016-11-03 23:26 | OP ---
[address] [address] OPERATIVE REPORT PATIENT: YANCI DUDLEY : 1990 MR#: [id number] ADMIT: 11/03/2016 JOB ID: [id number] DATE OF SURGERY: 11/03/2016 SURGEON: Mikey Goodwin MD. POLITICAL DIRECTOR: Dr. Romo, resident. ANESTHESIA: General. PREOPERATIVE DIAGNOSIS(ES): Left medial breast abscess. POSTOPERATIVE DIAGNOSIS(ES): Left medial breast abscess. PRINCIPAL PROCEDURE: Incision and drainage of left medial breast abscess. INDICATION FOR PROCEDURE: The patient is a 26-year-old female with a left medial breast abscess which has spontaneously drained over the past day or two. The patient has never had a mammogram previously. PRINCIPAL FINDING: Successful I and D of a left medial breast abscess, aspirated pus was sent for cultures. The incision was approximately 4.7 cm in length. On palpation of her left breast, she does have a palpable lump at the 12 o'clock position of her left breast. This 12 o'clock position is far away from her medial breast abscess. PROCEDURE COURSE: The patient was brought to the operating table and was provided with general anesthesia. The patient was given IV antibiotics preoperatively and SCDs. A time-out was performed. The patient's left breast was then prepped and draped in the usual sterile fashion. Next, directly over the abscess site, percutaneous aspiration using an 18-gauge needle yielded pus. This was sent for cultures. Next, an incision was made in a periareolar fashion directly on top of the abscess and extended for approximately 4.7 cm in length. Dissection into the subcu was carried out bluntly and also using cautery. We explored the subcu and also into the breast tissue until we were sure there was no undrained pus. Irrigation of the abscess cavity was carried out. Hemostasis was controlled using cautery. There was some necrotic skin right at the apex of the abscess and these were trimmed and resected. Again, irrigation of the abscess cavity was performed. Next, the wound cavity was then packed with Kerlix gauze soaked in saline. Of note, on palpation of her left breast there is a palpable mass at the 12 o'clock position of her breast which is quite far from the abscess site. A sterile dressing was then placed over the wound. By the end of the procedure, needle counts and sponge counts were correct. The patient was then extubated and taken to the recovery room in stable satisfactory condition. AIDA
[2016-11-04] MEDS: HYDROmorphone 1 mg/mL Inj IVPUSH PRN ×4 (00:26→14:12)
[2016-11-04] MEDS: Vancomycin Inj 1,500 MG in 0.9% Sodium Chloride 500 ML IV SCH ×3 (03:03→19:58)
[2016-11-04 04:17] VITALS: PULSE 114
[2016-11-04 04:30] VITALS: BP 113/64; PULSE 110; RESP 16; O2SAT 99
[2016-11-04] MEDS: Piperacillin-Tazo 3.375 Gm Inj 3.375 GM in Dextrose 5% Minibag Plus 50 ML IV SCH ×3 (04:52→21:50)
[2016-11-04 05:24] LABS: Mean Corpuscular Hemoglobin 26.7 pg (27.0-35.0); Mean Corpuscular Volume 83.4 fL (81-100)
[2016-11-04] MEDS: Vancomycin Dose per Pharmacist XX SCH (08:39)
[2016-11-04 08:52] VITALS: BP 115/72; PULSE 113; RESP 18; O2SAT 98
--- NOTE | 2016-11-04 09:32 | PCM.PNSURG ---
Subjective Date of Service: Nov 04, 2016 Date of Service: Nov 04, 2016 Visit Information: Reason for Visit Left Breast Abscess Surgery/Surgery Date I&D L BREAST ABSCESS 11/03 Post-Op Day # Date of Admission: Nov 03, 2016 at 06:17 Hospital Day # Subjective: Patient states her pain is still significant 03/04, down from 9/10 on admission, but now more localized to the surgical lesion without radiation. She denies dizziness, nausea, vomiting, shortness of breath, fever, chills, abdominal pain , constipation, diarrhea, distal extremity pain. Patient reports 1 BM. Objective Objective General: Pt is awake in bed, obese and Well-developed. Appropriately interactive , HEENT: Normocephalic, atraumatic. External ears without defect. Pupils equal, round, responsive. Oropharynx free of erythema with moist mucosa. poor oral health with mild decayed dentation. Cardiovascular: Mildly tachycardic rate with normal rhythm with no murmurs, rubs , or gallops appreciated Pulmonary: Clear to auscultation bilaterally with no crackles, wheezes, or rhonchi. Normal respiratory effort with no use of accessory muscles. Abdomen: Bowel tones present. Soft, nontender, nondistended. No hepatosplenomegaly or masses appreciated. Extremities: No clubbing, cyanosis, edema, or lymphadenopathy appreciated. Skin: Normal temperature, turgor, and texture; no rash, ulcers, or subcutaneous nodules appreciated. Neurological: Cranial nerves grossly intact. Normal muscle strength, tone, and bulk. Reflexes, coordination, and sensory function within normal limits. No known gait impairment. Psychiatric: Normal mood and affect. Alert and oriented to person, place, and time. Breast: Left breast 6 cm incision, dry with minimal drainage. Packing intact. Diffuse breast erythema reduced from yesterday. Vital Sign- Last 8 Hours Date Time Temp Pulse Resp B/P Pulse Ox O2 Delivery O2 Flow Rate FiO2 11/04/16 08:52 37.4 113 18 115/72 98 Room Air 11/04/16 04:30 36.6 110 16 113/64 99 Room Air 11/04/16 04:17 114 Intake and Output- Last 8 Hour 11/04/16 Cumulative From/Thru 07:00 11/03/16 01:42 - 11/04/16 05:38 Intake Total 2055 ml 4400 ml Output Total 1860 ml 2470 ml Balance 195 ml 1930 ml Intake Oral 400 ml IV Total 2055 ml 4000 ml Output Urine Total 1860 ml 2460 ml Estimated Blood Loss 10 ml Result Diagram: 11/04/16 0510 11/04/16 0510 Assessment & Plan Impression Status post day 1 following I&D of left breast abscess on the lower medial aspect. Problems: Plan Continue standard post I&D management. Continue IV antibiotics Vanc and Zosyn with ID following. IV dilaudid only with dressing changes. Start PO [place] 10/325 mg Q4H jarad for 1 day. Wound care following. Hospitalist managing other medical conditions. Resuscitation Status: CPR: Attempt Resuscitation Attending Statement: I agree with Dr. Rogers's assessment and plan. CHAKA ROGERS DO Nov 04, 2016 09:32 Mikey Goodwin MD Nov 08, 2016 17:14
[2016-11-04] MEDS: HYDROcodone-APAP 10-325 mg PO SCH ×4 (10:04→22:33)
--- NOTE | 2016-11-04 10:14 | CONS ---
[address] [address] CONSULTATION REPORT PATIENT: YANCI DUDLEY : 1990 MR#: [id number] ADMIT: 11/03/2016 JOB ID: [id number] DATE OF SERVICE: 11/04/2016 REASON FOR CONSULTATION: Left breast abscess in an intravenous drug user. HISTORY OF PRESENT ILLNESS: I kindly thank Dr. Romo for this timely consult. The patient is a 26-year-old woman with longstanding history of heroin use. Initially, she was a heroin smoker, but several months ago converted to heroin injection, primarily into her arms, but occasionally into her legs. She denies ever injecting heroin into her breasts or mammary veins. She reports that about one week ago she developed the insidious onset of tenderness and swelling along her left medial breast. This progressively worsened in terms of the pain and swelling to the point that she sought evaluation and was admitted to this facility a day and a half ago. She was taken to the operating room for what appeared to be a large breast abscess, where she had incision and drainage performed by Dr. Goodwin. He placed a 5 cm incision and drained what was clearly an abscess. There was also some necrotic skin at the apex of the abscess which was trimmed and resected. Also noted was a breast mass which was quite a ways away from the abscess which he did not resect. Appropriate cultures were done and the patient has been maintained on vancomycin and Zosyn since her admission a day and a half ago. Interestingly, the patient reports that through this process she has had no fevers, chills, or sweats. No significant headache, sore throat, pulmonary or GI symptoms to go along with what has been a very localized, extremely painful process involving her medial left breast. She denies prior history of breast infections. She is not aware of any trauma, injury, bites, or other process which may have initiated this infection. PAST MEDICAL HISTORY: 1. Intravenous heroin use. 2. Left lower extremity cellulitis. No culture organisms were identified from that outpatient process. SOCIAL HISTORY: The patient is a nonsmoker, nondrinker. She is essentially homeless in the [facility], but she does state lately she has had a mobile home to stay in. FAMILY HISTORY: Vague, but as far she knows, no 1st or 2nd-degree relatives with history of TB, and her dad is said to have some form of cardiac disease. REVIEW OF SYSTEMS: Was done. No significant headache. No visual change. No sore throat. No cough, shortness of breath, chest pain, nausea, vomiting, diarrhea, dysuria, pain in the joints or pain in the lower extremities. Remainder of the review of systems is negative. PHYSICAL EXAMINATION: Reveals a slightly obese, young woman, lying in bed, in mild distress secondary to left breast pain. She has been afebrile since admission. Currently 37.4, pulse 110, respiratory rate 18, blood pressure 115/72. She is saturating well on room air. She is awake, alert, lucid and able to give an appropriate history. Head without trauma. Eyes without conjunctivitis or scleral icterus. Oral cavity, no thrush. No pharyngitis. Neck is supple without adenopathy. Lungs are clear. Cardiac tones regular rate and rhythm without murmur. Abdomen is soft, nontender, without organomegaly. She does not have a Leonard catheter. She does not have suprapubic tenderness. Does not have synovitis anywhere. No peripheral edema. No skin changes are noted and no skin breakdown except involving the left breast. The left medial breast has an approximately 5 cm long vertical medial incision which is packed. There is surrounding cellulitis which extends almost all the way to the nipple and almost all the way to the chest wall medially. There is no bullae or jesus alberto necrosis of this area. The entire area of the breast abscess is quite tender. Neurologically, the patient is completely intact. LABORATORIES: Include white count 10,000, without left shift. Creatinine 0.43. LFTs normal except for ALT 45. Urinalysis not done. MRSA screen negative. Blood cultures negative. Breast abscess material obtained during surgery is purulent with many polys and gram-positive cocci. Interestingly, there has been no growth yet on the plates, which raises the possibility, though not proven, that these could be anaerobic streps. The other possibility here is that these could easily represent so-called aerobic streps such as group A or group B strep. IMPRESSION: This unfortunate young woman who uses IV drugs now presents with a very significant left breast abscess. Fortunately, she has no constitutional symptoms and is not in shock. The nature of this process is unclear, as she denies injecting drugs into her breast and has no known trauma, bites or other known injuries to the breast tissue to incite this process. The likely organisms here is staph and strep, and the possibility of anaerobic strep is not excluded. RECOMMENDATIONS: 1. Will continue with vancomycin and Zosyn until we have clarification on the organism. 2. ASO titer will be checked. 3. Hepatitis C and HIV will be checked. 4. Will continue to follow this patient with you and, hopefully be able to send her out with oral or long-acting IV antibiotics in the next couple of days as she slowly improves. One concern is whether this sometimes homeless woman can make her way to an appropriate Wound Care Center to follow up what is a fairly major wound in her left breast.
[2016-11-04] MEDS ORDERED: 0.9% Sodium Chloride 250 ML ONE (12:29)
[2016-11-04] MEDS: cloNIDine 0.1 mg Tablet PO SCH ×3 (14:03→21:50)
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
--- NOTE | 2016-11-04 15:08 | PCM.PNMED ---
Subjective Date of Service Nov 04, 2016 Subjective Patient was seen and examined at bedside today. Patient denies any shortness of breath, nausea, vomiting, diarrhea. However the patient is complaining of significant left breast pain and myalgias. Overnight events: None Exam Vital Signs Vital Sign - Last Date Time Temp Pulse Resp B/P Pulse Ox O2 Delivery O2 Flow Rate FiO2 11/04/16 08:52 37.4 113 18 115/72 98 Room Air 11/03/16 14:06 8 Intake and Output 11/03/16 11/03/16 11/04/16 Cumulative From/Thru 15:00 23:00 07:00 11/03/16 01:42 - 11/04/16 05:38 Intake Total 1300 ml 1045 ml 2055 ml 4400 ml Output Total 10 ml 600 ml 1860 ml 2470 ml Balance 1290 ml 445 ml 195 ml 1930 ml Intake Oral 400 ml 400 ml IV Total 1300 ml 645 ml 2055 ml 4000 ml Output Urine Total 600 ml 1860 ml 2460 ml Estimated Blood Loss 10 ml 10 ml Exam Physical Exam: GEN: Patient was awake, alert, responding appropriately to questions HEENT: Pupils equal round and reactive to light, extraocular eye muscles intact , Neck soft supple, trachea midline, nomocephalic/atraumatic CV: +S1/S2, regular rate and rhythm, no murmurs auscultated Skin: Left breast erythema improved from yesterday, incisional site dressing clean dry and intact Respiratory: CTAB, no wheezes, rales, rhonchi GI: +bowel sounds x4, soft, compressible, nontender to palpation EXT: no clubbing, cyanosis, edema Neuro: Cranial nerves II-XII grossly intact Psych: mood and affect were appropriate IVs and Medications Medications Reviewed: Medications were reviewed in detail Lab and Diagnostics Result Diagram: 11/04/16 0510 11/04/16 0510 X-Rays, CTs and MRIs CT of the chest with contrast: IMPRESSION: 1. Superficial cutaneous and subcutaneous defect within the left breast with diffuse skin thickening throughout the breast. Given patient age, the skin thickening is likely secondary to infection; however underlying inflammatory neoplasm cannot be excluded and followup to resolution is recommended. There is no fluid collection amenable to drainage. There is no extension into the underlying pectoralis musculature. 2. Trace patchy opacities at the left apex which may be associated with inflammation or infection. Followup recommended. Dictated by: Daisha Thorpe M.D. on 11/03/2016 at 21:27 Approved by: Daisha Thorpe M.D. on 11/03/2016 at 21:31 Assessment & Plan 26-year-old female current IV drug user presents with a left breast abscess Left breast abscess status post I&D (11/03/16) -Continue Zosyn and vancomycin as per infectious disease recommendations -CT of the left breast: Show signs of infection but no fluid collections or tracking -IV Toradol for pain control -MRSA screen negative - Abscess cultures negative -Blood cultures negative 24 hours - ASO titer pending - Hepatitis C and HIV pending -General surgery following - Infectious disease (Dr. 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
--- NOTE | 2016-11-04 16:01 | NUR ---
Withdrawal/IJ At about 1400 pt in tears, restless, diaphoretic, leg pain, and stating she wanted to go home. Pt admits she is withdrawing. Sharon rodríguez, she came in room to assess pt. Clonidine has been ordered. Meds scheduled to better facilitate pt healing process from abscess. Ketorolac has been scheduled and no longer PRN and also [place] is scheduled. IV Dilaudid to be used with dressing changes (wound care was in to change dressing today) Pts significant other walked in as she was withdrawing and she felt better knowing he was here. She states she doesn't like hospitals and gets really anxious. Care ongoing. Triple lumen IJ dressing needed to be changed due to pts increased in diaphoresis. IV therapy called and they came up to re-dress. Pt AOX3 cooperative with care.
--- NOTE | 2016-11-04 18:14 | NUR ---
Wound Care. Wound evaluation order received, pt seen at bedside. 26 yo female s/p left medial breast I&D 11/03. Wound measures 6 cm L x 2 cm W x 1 cm D, no undermining or tunneling, drainage is serosanquinous and moderate. Wound base is dark in areas from cauterization, minimal erythema, no induration. Cleaned wound with saline and gauze redressed wound with 1" iodoform gauze and covered with adhesive foam dressing. Adequately debrided abscess, nursing to change dressings q 24 hrs, wound to recheck on patient 11/06.
[2016-11-04] MEDS ORDERED: Vancomycin Serum Trough XX ONE (19:00)
[2016-11-04 19:45] VITALS: BP 119/82; PULSE 87; RESP 16; O2SAT 100
[2016-11-05] MEDS: HYDROcodone-APAP 10-325 mg PO SCH ×3 (02:31→09:55)
[2016-11-05 02:50] LABS: Mean Corpuscular Hemoglobin 26.6 pg (27.0-35.0); Mean Corpuscular Volume 84.9 fL (81-100)
[2016-11-05] MEDS: Vancomycin Inj 1,500 MG in 0.9% Sodium Chloride 500 ML IV SCH ×2 (04:18→11:48)
[2016-11-05 04:35] VITALS: BP 124/89; PULSE 87; RESP 17; O2SAT 99
[2016-11-05] MEDS: Piperacillin-Tazo 3.375 Gm Inj 3.375 GM in Dextrose 5% Minibag Plus 50 ML IV SCH ×3 (04:53→21:26)
--- NOTE | 2016-11-05 05:16 | NUR ---
GI/Vomiting Pt had episode of nausea and vomiting. Pt stated she took a sip and water and then she puked and became nauseated. Nausea did not dissipate and Zofran was given with good effect.
--- NOTE | 2016-11-05 05:51 | PCM.PHAPRO ---
Progress Date of Service: Nov 05, 2016 VANCOMYCIN PER PHARMACY A/ Vancomycin trough = 14.9 drawn 11/05 0230, afebrile, WBC=7.4 cultures pending. P/ Will continue at current dosing Vancomycin 1500mg IV Q8H and monitor SCr daily x2 and draw another trough after 4 more doses at 1100 if vancomycin is continued. Pharmacy will continue to monitor and adjust. Thanks for the consult. Josehp Aly [facility] Nov 05, 2016 05:51
[2016-11-05] MEDS: cloNIDine 0.1 mg Tablet PO SCH ×4 (06:32→21:27)
--- NOTE | 2016-11-05 08:00 | PCM.PNSURG ---
Subjective Date of Service: Nov 05, 2016 Date of Service: Nov 05, 2016 Visit Information: Reason for Visit Left Breast Abscess Surgery/Surgery Date I&D L BREAST ABSCESS 11/03 Post-Op Day # Date of Admission: Nov 03, 2016 at 06:17 Hospital Day # Subjective: Ms. Shantelle Iyer lying in bed ordering breakfast. She reports pain mildly controlled and localized to incision site with mild tenderness on lower aspect of breast. she denies fever, chills, nausea, vomiting, SOB, abdominal pain, constipation, diarrhea, distal extremity pain. Objective Objective General: Pt is awake in bed, obese and Well-developed. Appropriately interactive , HEENT: Normocephalic, atraumatic. External ears without defect. Pupils equal, round, responsive. Oropharynx free of erythema with moist mucosa. poor oral health with mild decayed dentation. Cardiovascular: Mildly tachycardic rate with normal rhythm with no murmurs, rubs , or gallops appreciated Pulmonary: Clear to auscultation bilaterally with no crackles, wheezes, or rhonchi. Normal respiratory effort with no use of accessory muscles. Abdomen: Bowel tones present. Soft, nontender, nondistended. No hepatosplenomegaly or masses appreciated. Extremities: No clubbing, cyanosis, edema, or lymphadenopathy appreciated. Skin: Normal temperature, turgor, and texture; no rash, ulcers, or subcutaneous nodules appreciated. Neurological: Cranial nerves grossly intact. Normal muscle strength, tone, and bulk. Reflexes, coordination, and sensory function within normal limits. No known gait impairment. Psychiatric: Normal mood and affect. Alert and oriented to person, place, and time. Breast: Left breast 6 cm incision with bandage in place, dry with minimal drainage. Packing intact. Diffuse lower left breast erythema reduced from yesterday. Vital Sign- Last 8 Hours Date Time Temp Pulse Resp B/P Pulse Ox O2 Delivery O2 Flow Rate FiO2 11/05/16 04:35 36.8 87 17 124/89 99 Room Air Intake and Output- Last 8 Hour 11/05/16 Cumulative From/Thru 07:00 11/03/16 01:42 - 11/05/16 06:26 Intake Total 2464 ml 8570 ml Output Total 2470 ml Balance 2464 ml 6100 ml Intake Oral 1075 ml 2375 ml IV Total 1389 ml 6195 ml Output Urine Total 2460 ml Estimated Blood Loss 10 ml # Voids 4 6 Result Diagram: 11/05/16 0230 11/05/16 0230 Assessment & Plan Impression Status post day 2 following I&D of left breast abscess on the lower medial aspect. Problems: Plan Continue standard post I&D management. Continue IV antibiotics according to ID recommendations. IV dilaudid only with dressing changes. PO [place] 10/325 mg Q4H with medicine team to resume management of pain control. Wound care following. Hospitalist managing other medical conditions. Resuscitation Status: CPR: Attempt Resuscitation Resuscitation Status: CPR: Attempt Resuscitation Attending Statement: I agree with Dr. Romo's assessment and plan. CHAKA ROMO DO Nov 05, 2016 07:59 Mikey Goodwin MD Nov 13, 2016 09:14
[2016-11-05] MEDS: Vancomycin Dose per Pharmacist XX SCH (08:30)
[2016-11-05 09:45] VITALS: BP 120/71; PULSE 77; RESP 20; O2SAT 96
--- NOTE | 2016-11-05 11:00 | NUR ---
Social Work: Readiness for Discharge D: Pt is not medically stable for discharge at this time and requiring 1-2 more days of abx. ID is following. Pt was seen by HUGO from [facility] to complete a bedside assessment on 11/04. TOOL AND DIE MAKER/DESIGNER spoke with HUGO who states that the pt has been referred to [facility] for Suboxone [facility] and has an intake appointment scheduled with [place] on Thursday 11/09. Pt still remains with IJ in place. A: Pt has been I during admission. P: Anticipate pt to discharge home with no further sw needs; pt to follow up with [facility] on 11/09/16. CDP is following the pt and will see her again prior to discharge. SHEBA Kat
[2016-11-05] MEDS ORDERED: HYDROcodone-APAP 5-325 mg Tablet PO PRN (13:55)
[2016-11-05] MEDS ORDERED: 0.9% Sodium Chloride 100 ML ONE ×2 (15:10)
--- NOTE | 2016-11-05 15:34 | NUR ---
IJ/mobility/nausea at 1500 pt called RN to room IJ tape has come up. Called IV therapy after reinforcing with tegaderm and notifed them. Indep in room/BR No complaints of nausea, tolerating meals. S.O. in room/bed most of the shift.
[2016-11-05] MEDS: HYDROmorphone 1 mg/mL Inj IVPUSH PRN (16:26)
[2016-11-05 16:40] VITALS: BP 127/80; PULSE 80; RESP 20; O2SAT 99
--- NOTE | 2016-11-05 16:45 | NUR ---
dressing change Dr Dee into see patient. She removed her own dressing Dr Dee assessed this RN cleaned area with NS, packed with iodiform and covered with mepilex. Pre-medicated with dilaudid.
--- NOTE | 2016-11-05 17:47 | PCM.PNMED ---
Subjective Date of Service Nov 05, 2016 Subjective Patient was seen and examined at bedside today. Patient denies any chest pain, shortness of breath, nausea, vomiting, diarrhea. He states that he does still have some breast pain, but her heroin withdrawal symptoms are more manageable currently. Overnight events: None Exam Vital Signs Vital Sign - Last Date Time Temp Pulse Resp B/P Pulse Ox O2 Delivery O2 Flow Rate FiO2 11/05/16 16:40 36.9 80 20 127/80 99 Room Air 11/03/16 14:06 8 Intake and Output 11/04/16 11/04/16 11/05/16 Cumulative From/Thru 15:00 23:00 07:00 11/03/16 01:42 - 11/05/16 06:26 Intake Total 1706 ml 2464 ml 8570 ml Output Total 2470 ml Balance 1706 ml 2464 ml 6100 ml Intake Oral 900 ml 1075 ml 2375 ml IV Total 806 ml 1389 ml 6195 ml Output Urine Total 2460 ml Estimated Blood Loss 10 ml # Voids 2 4 6 Exam Physical Exam: GEN: Patient was awake, alert, responding appropriately to questions HEENT: Pupils equal round and reactive to light, extraocular eye muscles intact , Neck soft supple, trachea midline, nomocephalic/atraumatic CV: +S1/S2, regular rate and rhythm, no murmurs auscultated Respiratory: CTAB, no wheezes, rales, rhonchi Skin: Left breast lesion dressing mildly blood-tinged, L breast erythema significantly improved GI: +bowel sounds x4, soft, compressible, nontender to palpation EXT: no clubbing, cyanosis, edema Neuro: Cranial nerves II-XII grossly intact Psych: mood and affect were appropriate IVs and Medications Medications Reviewed: Medications were reviewed in detail Lab and Diagnostics Result Diagram: 11/05/16 0230 11/05/16 0230 X-Rays, CTs and MRIs CT of the chest with contrast: IMPRESSION: 1. Superficial cutaneous and subcutaneous defect within the left breast with diffuse skin thickening throughout the breast. Given patient age, the skin thickening is likely secondary to infection; however underlying inflammatory neoplasm cannot be excluded and followup to resolution is recommended. There is no fluid collection amenable to drainage. There is no extension into the underlying pectoralis musculature. 2. Trace patchy opacities at the left apex which may be associated with inflammation or infection. Followup recommended. Dictated by: Daisha Thorpe M.D. on 11/03/2016 at 21:27 Approved by: Daisha Thorpe M.D. on 11/03/2016 at 21:31 Assessment & Plan 26-year-old female current IV drug user presents with a left breast abscess Left breast abscess status post I&D (11/03/16) -Continue Zosyn and vancomycin as per infectious disease recommendations -CT of the left breast: Show signs of infection but no fluid collections or tracking -IV Toradol for pain control -MRSA screen negative - Abscess cultures negative -Blood cultures negative 48 hours -Abscess cultures positive for gram-positive cocci - ASO titer within normal limits - Hepatitis C and HIV pending -General surgery following - Infectious disease (Dr. 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 The patient will most likely be discharged home with antibiotics in the next 1-2 days. Will discuss further with infectious disease for further antibiotic management. Patient's opioid withdrawal symptoms have improved significantly. VTE Mechanical Devices: Intermittant Pneumatic CD Resuscitation Status: CPR: Attempt Resuscitation Viv Casey DO Nov 05, 2016 17:47
--- NOTE | 2016-11-05 19:45 | NUR ---
IJ IV therapy called due to fastener coming off from IJ site due to pt being diaphoretic. Temporarily reinforced with tape. Addendum: 11/06/16 at 0015 by WILBER ATKINSON RN IV therapy changed dressing.
[2016-11-05 21:20] VITALS: BP 153/109; PULSE 90; RESP 16; O2SAT 99
--- NOTE | 2016-11-05 22:01 | PROG NOTE ---
[address] [address] PROGRESS NOTE PATIENT: YANCI DUDLEY : 1990 MR#: [id number] ADMIT: 11/03/2016 JOB ID: [id number] INFECTIOUS DISEASES FOLLOWUP: DATE: 11/05/2016 REASON FOR FOLLOWUP: Left medial breast abscess. INTERVAL HISTORY: Overnight, the patient reports no fevers, chills, or sweats. No sore throat, cough, or chest pain. She notes her breast is gradually less painful though it is still somewhat painful of course as it is packed, but the erythema that had been spreading towards the nipple has retreated and she is now left with the packed abscess in the medial breast. PHYSICAL EXAMINATION: Physical exam reveals an afebrile, alert young woman. Temp 37.1, pulse 77, respiratory rate 20, blood pressure 120/71, saturating well on room air. No acute distress. Oral cavity negative. No skin rash noted. There is about a 4 cm x 2 cm x 1 cm deep pocket which was packed and we removed the packing over the left medial breast. The wound seems to be granulating, healing reasonably well. There is no longer the surrounding erythema and tenderness that we had seen previously and there is no undermining or purulence. No odor is detected. LABORATORIES: Include white count 7400. Creatinine 0.62. Streptozyme 82. HIV and hepatitis C are pending. MRSA screen negative. The Gram stain from the purulent material from the breast showed many polys and moderate GPCs, but they are not growing. Recall that she took a few doses of clindamycin before she came in, raising the possibility that she had sterilized strep or perhaps even Staph process. IMPRESSION: Left breast abscess, not due to injection drug use in a patient who does use intravenous sites elsewhere to inject drugs. The likely cause of this is strep and is probably a beta strep though the possibility of a strep milleri type organism or even methicillin-sensitive Staphylococcus aureus is not excluded. Anaerobic strep also remotely possible. RECOMMENDATIONS: 1. Will continue with Zosyn today and drop the vancomycin as methicillin resistant Staphylococcus aureus seems highly unlikely. 2. Will hope to get a positive culture by tomorrow, but failing that, will probably convert the patient to oral antibiotics and consider discharge. Thank you very much for allowing us to see this patient.
[2016-11-06] MEDS ORDERED: 0.9% Sodium Chloride 250 ML ONE (01:57)
[2016-11-06 02:14] VITALS: BP 125/85; PULSE 78; RESP 16; O2SAT 99
[2016-11-06] MEDS: Piperacillin-Tazo 3.375 Gm Inj 3.375 GM in Dextrose 5% Minibag Plus 50 ML IV SCH (04:56)
[2016-11-06 06:06] VITALS: BP 120/83; PULSE 81; RESP 17; O2SAT 98
[2016-11-06] MEDS: cloNIDine 0.1 mg Tablet PO SCH ×2 (06:08→11:39)
[2016-11-06 06:41] LABS: Mean Corpuscular Hemoglobin 26.9 pg (27.0-35.0); Mean Corpuscular Volume 83.9 fL (81-100)
--- NOTE | 2016-11-06 09:37 | PCM.PNSURG ---
Subjective Date of Service: Nov 06, 2016 Date of Service: Nov 06, 2016 Visit Information: Reason for Visit Left Breast Abscess Surgery/Surgery Date I&D L BREAST ABSCESS 11/03 Post-Op Day # Date of Admission: Nov 03, 2016 at 06:17 Hospital Day # Subjective: No acute overnight events. Ms. Shantelle Iyer lying in bed. She reports pain well controlled and remains localized to incision site. diffuse tenderness improved from day before. she denies fever, chills, nausea, vomiting, SOB, abdominal pain, constipation, diarrhea, distal extremity pain. Objective Objective General: Pt is awake in bed, obese and Well-developed. Appropriately interactive , HEENT: Normocephalic, atraumatic. External ears without defect. Pupils equal, round, responsive. Oropharynx free of erythema with moist mucosa. poor oral health with mild decayed dentation. Cardiovascular: Mildly tachycardic rate with normal rhythm with no murmurs, rubs , or gallops appreciated Pulmonary: Clear to auscultation bilaterally with no crackles, wheezes, or rhonchi. Normal respiratory effort with no use of accessory muscles. Abdomen: Bowel tones present. Soft, nontender, nondistended. No hepatosplenomegaly or masses appreciated. Extremities: No clubbing, cyanosis, edema, or lymphadenopathy appreciated. Skin: Normal temperature, turgor, and texture; no rash, ulcers, or subcutaneous nodules appreciated. Neurological: Cranial nerves grossly intact. Normal muscle strength, tone, and bulk. Reflexes, coordination, and sensory function within normal limits. No known gait impairment. Psychiatric: Normal mood and affect. Alert and oriented to person, place, and time. Breast: Left breast 6 cm incision with bandage in place, dry with minimal drainage. Packing intact. Diffuse lower left breast erythema reduced from yesterday. Vital Sign- Last 8 Hours Date Time Temp Pulse Resp B/P Pulse Ox O2 Delivery O2 Flow Rate FiO2 11/06/16 06:06 36.6 81 17 120/83 98 Room Air 11/06/16 02:14 36.7 78 16 125/85 99 Room Air Intake and Output- Last 8 Hour 11/06/16 Cumulative From/Thru 07:00 11/03/16 01:42 - 11/06/16 05:09 Intake Total 1542 ml 66371 ml Output Total 2470 ml Balance 1542 ml 9815 ml Intake Oral 1315 ml 5130 ml IV Total 227 ml 7155 ml Output Urine Total 2460 ml Estimated Blood Loss 10 ml # Voids 5 14 # Bowel Movements 0 Result Diagram: 11/06/16 0500 11/06/16 0500 Assessment & Plan Impression Status post day 3 following I&D of left breast abscess on the lower medial aspect. Problems: Plan Continue standard post I&D management. Encourage increased ambulation. Continue IV antibiotics according to ID recommendations. - MRSA negative, vancomycin has been stopped. - Awaiting cx results, will adjust abx at that time. Plan for possible d/c today or tomorrow, following abx recommendations from ID. IV dilaudid only with dressing changes. PO [place] 10/325 mg Q4H with medicine team to resume management of pain control. Wound care following. Hospitalist managing other medical conditions and central line management. Resuscitation Status: CPR: Attempt Resuscitation Resuscitation Status: CPR: Attempt Resuscitation Attending Statement: I agree with Dr. Romo's assessment and plan. CHAKA ROMO DO Nov 06, 2016 09:37 Mikey Goodwin MD Nov 07, 2016 10:15
--- NOTE | 2016-11-06 09:49 | NUR ---
Social Work note - CANDLE WRAPPER met briefly with pt - provided contact information for pt for [facility] - Explained that she has an appointment scheduled for intake on Thursday 11/09 at [facility]. Pt thankful for information. No other needs identified. CANDLE WRAPPER will continue to follow. Plan: Home with fiance and follow up at [facility] and [facility]. ABIGAIL Hernandez
[2016-11-06] MEDS ORDERED: Vancomycin Serum Trough XX ONE (11:00)
--- NOTE | 2016-11-06 11:25 | PROG NOTE ---
[address] [address] PROGRESS NOTE PATIENT: YANCI DUDLEY : 1990 MR#: [id number] ADMIT: 11/03/2016 JOB ID: [id number] DATE: 11/06/2016 INFECTIOUS DISEASE FOLLOWUP NOTE: REASON FOR FOLLOWUP: Left medial breast abscess, and newly discovered hepatitis C. INTERVAL HISTORY: Overnight, the patient has felt reasonably well. No fevers, chills, or sweats. No cough, nausea, vomiting, OR diarrhea. She is tolerating her IV Zosyn well. Her left medial breast pain continues to decrease, and we evaluated the wound with Josemanuel from wound care this morning at the bedside. PHYSICAL EXAMINATION: Reveals a comfortable afebrile woman. Temp 36.6, pulse 81, respiratory rate 17, blood pressure 120/83, saturating well on room air. She is awake and alert. Oral cavity notable for very poor dentition. Lungs clear. Cardiac tones: No murmur. The breast abscess cavity is approximately 5 x 2 x 1 cm deep. The wound we saw yesterday is again clean and with some granulation tissue but no purulence. There is minimal surrounding erythema. Remainder of the exam is unremarkable. LABORATORIES: Include white count normal at 9700, platelet count normal at 330,000. Creatinine 0.78. LFT are normal. Albumin 3.1. Procalcitonin 0. Serologic studies include a negative HIV but unfortunately, positive hepatitis C by antibody. This led us to order a hepatitis C genotype and viral load. Micro studies have just come back and we discussed these results with the Micro Lab. There is a viridans strep growing from the breast, as well as a gram-negative daily, which is mucoid. The strep is present in moderate quantities whereas the mucoid gram-negative in minimal quantity. Susceptibilities are not available yet. Blood cultures are negative. We had a MRSA screen previously that was negative. IMPRESSION: This patient developed a medial breast abscess without clear precipitating trauma or injury. She states unequivocally she does not inject intravenous drugs into her breast, and we are left with somewhat unusual organisms in that she has a viridans strep, as well as what could be a klebsiella growing. In reviewing the antibiotic options it would appear that Augmentin would be a good choice for both the klebsiella, as well as, of course, the viridans strep, and the patient is going to receive continued care in the wound clinic. Her hepatitis C is undoubtedly on the basis of intravenous drug use. Whether this is still active or not is unclear, and the patient will be calling my office next week to find out the results of the viral load and genotype. RECOMMENDATIONS: 1. The patient is ready to be discharged from an infectious disease point of view. 2. I would send her out with one week of Augmentin 875 p.o. b.i.d. 3. The patient will call in a week or so to see the status of her hep C. 4. We informed the patient of her hep C status and gave some education about that as part of rounds. 5. Infectious Disease will sign off at this time. ABDIELD
--- NOTE | 2016-11-06 11:27 | NUR ---
Wound Care Pt seen at bedside with Dr Dee present. Left breast wound is clean and without erythema of significance, drainage is minimal and serous in nature, no odor to wound. Cleaned with saline and gauze. redressed with adhesive foam dressing. Measures 4.5 cm L x 2 cm W x 0.8 cm D. Will provide instruction for wound care and dressing supplies and instructions for dressing changes after patient has had a shower. Will schedule F/U at wound center in 1-2 weeks.
[2016-11-06] MEDS ORDERED: AMOX-366 PO (11:51)
[2016-11-06] MEDS ORDERED: CLON0.1T PO (11:51)
[2016-11-06] MEDS ORDERED: clonidine PO (11:51)
[2016-11-06] MEDS ORDERED: CLON0.1T14 PO (11:51)
[2016-11-06] MEDS ORDERED: NPR500T PO (11:51)
--- NOTE | 2016-11-06 11:59 | PCM.DIMED ---
Discharge Instructions Date of Service Nov 06, 2016 Dates of Hospitalization Nov 03, 2016 at 06:17 Discharge Diagnosis Discharge Diagnosis Left breast abscess status post I&D on 11/03/2016 Opioid withdrawal IV drug abuse Possible hepatitis C Medication Instructions Please take all of your antibiotic. Do not save any antibiotic for a later date. If you are feeling better that means that the antibiotic is working and he still need to continue the full dose. Please take all 14 pills of the Augmentin. Test Results Please contact Dr. Dee's office for the final results of your hepatitis C panel. Diet Heart Healthy Activity No restrictions (gradually return to normal daily activities) Call your provider Fever or Chills, Shortness of breath, Bleeding, Chest pain, Excessive diarrhea, Weakness (unilateral) Patient Instructions Follow-up Provider: Eleazar Carter Follow-up with PCP in: 1 week (please follow-up with your primary care provider if an appointment has not been made for you can please call to schedule an appointment [phone]) Follow-up in: 1 week (Please contact [facility] which is a Suboxone clinic for further treatment and assistance with drug abuse.) Follow-up with [facility]level in: 1 week (you have an appointment with [facility] on 11/09/2016 please call them if you have any further questions.) Viv Casey DO Nov 06, 2016 11:59
--- NOTE | 2016-11-06 12:15 | PCM.DC.MED ---
Discharge Summary Date of Service Nov 06, 2016 Dates of Hospitalization Date of Hospital Admission Nov 03, 2016 at 06:17 Date of Discharge: Nov 06, 2016 Providers: Admitting Physician: Sandra Lang DO Primary Care Physician: Javier Attending Physician: Sandra Lang DO Diagnosis at Time of Discharge Diagnosis at Time of Discharge Left breast abscess status post I&D on 11/03/2016 Opioid withdrawal IV drug abuse Possible hepatitis C Consultations Infectious disease (Dr. Dee) Procedures XRay, CTs & MRIs CT of the chest with contrast: IMPRESSION: 1. Superficial cutaneous and subcutaneous defect within the left breast with diffuse skin thickening throughout the breast. Given patient age, the skin thickening is likely secondary to infection; however underlying inflammatory neoplasm cannot be excluded and followup to resolution is recommended. There is no fluid collection amenable to drainage. There is no extension into the underlying pectoralis musculature. 2. Trace patchy opacities at the left apex which may be associated with inflammation or infection. Followup recommended. Dictated by: Daisha Thorpe M.D. on 11/03/2016 at 21:27 Approved by: Daisha Thorpe M.D. on 11/03/2016 at 21:31 Hospital Course 26-year-old female current IV drug user presents with a left breast abscess Patient is a known IV drug user and presented with a left breast abscess. The patient was treated with IV antibiotics and also had an I&D on 11/03/2016. The patient responded well to treatment however she did have some complication secondary to opioid withdrawal. The patient was started on clonidine and IV Toradol and this helped to relieve her opioid withdrawal symptoms. The patient has expressed that she would like to quit doing drugs and has been referred to [facility] and [facility]. The patient stated that she will contact these agencies for substance abuse. The patient is being discharged home with Augmentin to be taken for the next 7 days 875 mg twice a day. The patient was also sent home with a tapering dose of clonidine to continue to help with her opioid withdrawal symptoms. During the stay the patient did have positive antibodies to hepatitis C. Further hepatitis studies were completed and the patient should follow up with Dr. Dee for the final results. Please see below for full hospital course during patient's stay: Left breast abscess status post I&D (11/03/16) -Continue Zosyn and vancomycin as per infectious disease recommendations -CT of the left breast: Show signs of infection but no fluid collections or tracking -IV Toradol for pain control -MRSA screen negative - Abscess cultures negative -Blood cultures negative 48 hours -Abscess cultures positive for gram-positive cocci - ASO titer within normal limits - Hepatitis C and HIV pending -General surgery following - Infectious disease (Dr. Dee) following -Continue to monitor Opioid withdrawal -Clonidine 0.4 mg 4 times a day for the next 4 days -Continue pain management with IV ketorolac -Continue to monitor blood pressure -Continue to monitor for any other signs of opioid withdrawal such as nausea, vomiting, and diarrhea IV drug abuse -supervisor shed workers to follow this patient has expressed a desire to quit drug abuse Diet: Regular DVT prophylaxis: Lovenox Code Status: Full code Disposition: The patient seems to be progressing well. The patient will most likely be discharged home with antibiotics in the next 1-2 days. Will discuss further with infectious disease for further antibiotic management. Patient's opioid withdrawal symptoms have improved significantly. Exam Vital Signs (Last) Date Time Temp Pulse Resp B/P Pulse Ox O2 Delivery O2 Flow Rate FiO2 11/06/16 06:06 36.6 81 17 120/83 98 Room Air 11/03/16 14:06 8 Exam Physical Exam: GEN: Patient was awake, alert, responding appropriately to questions HEENT: Pupils equal round and reactive to light, extraocular eye muscles intact , Neck soft supple, trachea midline, nomocephalic/atraumatic CV: +S1/S2, regular rate and rhythm, no murmurs auscultated Respiratory: CTAB, no wheezes, rales, rhonchi Skin: Left breast abscess dressing clean dry and intact, significantly improved erythema of the left breast GI: +bowel sounds x4, soft, compressible, nontender to palpation EXT: no clubbing, cyanosis, edema Neuro: Cranial nerves II-XII grossly intact Psych: mood and affect were appropriate Test 11/03/16 01:55 11/03/16 02:13 11/04/16 09:53 11/05/16 02:30 Hold Urine Received (Received) Neutrophils (%) (Auto) 63.5% (40-74) Lymphocytes (%) (Auto) 26.1% (14-46) Monocytes (%) (Auto) 8.4% (4-12) Eosinophils (%) (Auto) 1.6% (0-5) Basophils (%) (Auto) 0.2% (0-3) Lactic Acid Level 0.9mmol/L (0.4-2.0) Streptozyme 82.0IU/mL (0.0-200.0) Procalcitonin 0.04ng/mL (0.00-0.08) Vancomycin Level Trough 14.9mcg/mL Hepatitis C Antibody >11.0s/co ratio HIV (1&2) Ag and Ab, 4th Generation Non reactive (Non Reactive) Test 11/05/16 05:40 11/06/16 05:00 11/06/16 09:27 Hold [place] Top Tube Received (Received) White Blood Count 9.7th/mm3 (3.8-10.1) Red Blood Count 4.17mil/mm3 (3.90-5.20) Hemoglobin 11.2g/dL (12.0-15.6) Hematocrit 35.0% (35.0-46.0) Mean Corpuscular Volume 83.9fL (81-100) Mean Corpuscular Hemoglobin 26.9pg (27.0-35.0) Mean Corpuscular Hemoglobin Concent 32.0% (32.0-37.0) Red Cell Distribution Width 13.4% (12.3-15.4) Platelet Count 333bil/L (150-400) Sodium Level 140mEq/L (134-144) Potassium Level 3.8mEq/L (3.5-5.2) Chloride Level 104mEq/L (97-108) Carbon Dioxide Level 23mmol/L (18-29) Blood Urea Nitrogen 9mg/dL (6-20) Creatinine 0.78mg/dL (0.57-1.00) Estimat Glomerular Filtration Rate 129mL/min (>59) Glucose Level 111mg/dL (60-99) Calcium Level 8.3mg/dL (8.5-10.1) Total Bilirubin 0.7mg/dL (0.0-1.2) Aspartate Amino Transf (AST/SGOT) 30U/L (0-50) Alanine Aminotransferase (ALT/SGPT) 30U/L (0-32) Alkaline Phosphatase 64U/L (25-150) Total Protein 6.4g/dL (6.4-8.4) Albumin 3.1g/dL (3.4-5.0) Discharge Medications Discharge Medications ([clonidine]) 0.05 MG PO QID Please start this medication after the 0.1mg of Clonidine has completed Prescribed by: SELWYN PETERS DO ([clonidine]) 0.025 MG PO QID Please take this medication after the 0.05 dose of clonidine has finished Prescribed by: SELWYN PETERS DO Amoxicillin/Clav K 875-125 mg (Augmentin 875-125 mg) 1 Each Tablet 1 TABLET PO BID Prescribed by: SELWYN PETERS DO Clonidine (Catapres) 0.1 Mg Tablet 0.2 MG PO QID Please start today Prescribed by: SELWYN PETERS DO Clonidine (Clonidine) 0.1 Mg Tablet 0.1 MG PO QID Start this medication after the clonidine 0.2 medication is finished Prescribed by: SELWYN PETERS DO As needed Naproxen (Naproxen) 500 Mg Tab 500 MG PO BID PRN PRN For Pain Prescribed by: SELWYN PETERS DO Additional med instructions Please take all of your antibiotic. Do not save any antibiotic for a later date. If you are feeling better that means that the antibiotic is working and he still need to continue the full dose. Please take all 14 pills of the Augmentin. Followup Plan Discharge Diet: Heart Healthy Discharge Activity: No restrictions (gradually return to normal daily activities) Follow-up Provider: Eleazar Carter Follow-up with PCP in: 1 week (please follow-up with your primary care provider if an appointment has not been made for you can please call to schedule an appointment [phone]) Follow-up in: 1 week (Please contact [facility] which is a Suboxone clinic for further treatment and assistance with drug abuse.) Follow-up with [facility]level in: 1 week (you have an appointment with [facility] on 11/09/2016 please call them if you have any further questions.) Time spent Greater than 35 minutes copies to: Eleazar Carter Precious L DO Nov 06, 2016 12:15
--- NOTE | 2016-11-06 14:00 | NUR ---
Discharge Patient discharge to home accompanied by significant other via POV. Central Line removed by IV therapist. Discharge notes, instructions and hard copy of prescription given and well understood by patient and her significant other. Denies any discomfort at time of discharge. All belongings taken home with her.
--- NOTE | 2016-11-06 14:42 | NUR ---
Scheduled hospital follow up at residency clinic for October check in at 1040 AM for 1050AM appointment with Updated HAND HIDE STRETCHER
== END 2016-11-06 14:00 | disposition home or self-care (01) | DRG 363 ==
LOC: SED 01:38 → MOC 06:17
PROVIDERS: ADMIT Internal Medicine; ATTEND Neuromusculoskeletal Medicine & OMM
PROC: 02HV33Z Insertion of Infusion Device into Superior Vena Cava, Percutaneous Approach (ICD-10-PCS; 2016-11-03)
PROC: 0H9U0ZX Drainage of Left Breast, Open Approach, Diagnostic (ICD-10-PCS; principal; 2016-11-03 13:00)
DX: N61.1 Abscess of the breast and nipple (principal); F11.23 Opioid dependence with withdrawal; F15.10 Other stimulant abuse, uncomplicated

== ENCOUNTER 2016-12-04 19:04 | Emergency (ER) | payer OTHER ==
[~2016-12-04] VITALS: Ht 172.7 cm; Wt 90.1 kg
[~2016-12-04 19:04] MED LIST changes: +AMOX-366 PO; -CEPH-512 PO; +CLON0.1T PO; +CLON0.1T14 PO; +NPR500T PO; -SULF1TAB7 PO; +clonidine PO
[2016-12-04 19:18] VITALS: BP 157/100; PULSE 115; RESP 15; O2SAT 95
--- NOTE | 2016-12-04 21:36 | ED.REPORT ---
HPI-Rash / Abscess Date of Service December 04, 2016 ED Provider: Dr. Louis Velez D.O. A 26 year old female with a history of abscess and IV drug use presents to the ED with two abscesses onset five days ago. The patient has a large abscess on her medial right thigh and another smaller abscess on her left lateral calf. The areas are red and painful. The patient denies other symptoms. She was recently in the hospital from 11/03 - 11/06 with a left breast abscess and opioid withdrawal. The patient last used IV heroin yesterday. Nursing Notes Stated Complaint: SPIDER BITE LEFT CALF & RIGHT THIGH Chief Complaint: Skin Rash/Abscess Nursing Notes Reviewed: Yes Allergies: Coded Allergies: codeine (Verified Allergy, Intermediate, hives, 12/04/16) Scheduled ([clonidine]) 0.05 MG PO QID Please start this medication after the 0.1mg of Clonidine has completed ([clonidine]) 0.025 MG PO QID Please take this medication after the 0.05 dose of clonidine has finished Amoxicillin/Clav K 875-125 mg (Augmentin 875-125 mg) 1 Each Tablet 1 TABLET PO BID Clonidine (Catapres) 0.1 Mg Tablet 0.2 MG PO QID Please start today Clonidine (Clonidine) 0.1 Mg Tablet 0.1 MG PO QID Start this medication after the clonidine 0.2 medication is finished Scheduled PRN Naproxen (Naproxen) 500 Mg Tab 500 MG PO BID PRN PRN For Pain General Time Seen by MD: 21:36 Chief Complaint Abscess Hx Obtained From: Patient Arrived By: Walk-in Onset Occurred: 5 days ago Symptom Duration: Since onset Location: : Lower extremity Quality: Painful Severity: Current: Moderate Severity: Maximum: Moderate Pertinent Negative: Relieved by nothing Recent Healthcare: Recent doctor visit, Recent hospitalization Similar Sx Previous: Yes Past Medical History Past Medical History IV drug abuse Cellulitis Abscess Past Surgical History None reported Smoking History Unknown if Ever Smoker Social History Drug Use: IV drugs (Heroin) Other Social History: Good social support, Local resident Ambulatory Status Independent Review of Systems Review of Systems Note: + Two abscesses Constitutional: Denies: Fever Respiratory: Denies: Non-productive cough, Shortness of breath GI: Denies: Diarrhea, Vomiting Musculoskeletal: Reports: Extremity pain (Right thigh and left calf) Skin: Reports Rash (Right thigh and left calf) Complete sys rev & neg: except as marked. Physical Exam Initial Vital Signs Vital Signs (First) Date Time Temp Pulse Resp B/P Pulse Ox O2 Delivery O2 Flow Rate FiO2 12/04/16 19:18 37.2 115 15 157/100 95 Room Air Initial VS: Reviewed Head / Eyes: Atraumatic, Normocephalic ENT: Conjunctiva normal, No scleral icterus Neck: Supple, Full range of motion Neurologic: Alert, Oriented, Nonfocal Psychiatric: Mood/affect normal, Behavior normal, Normal thought content General/Constitutional: Awake, Alert, No acute distress Skin: Warm, Dry Abscess Notes: 6x9 inch area of erythema with central fluctuance on right medial thigh consistent with cellulitis and abscess 4x3 inch area of erythema left lower extremity Respiratory / Chest: Breath sounds NL, Breath sounds = bilat, No respiratory distress Cardiovascular: Regular rhythm, Heart sounds NL, No murmurs Heart Rate / Rhythm: Positive: Tachycardia Procedures Incision & Drainage Abscess Time: 22:17 Procedure Performed by: ED physician Consent / Setup / Site Prep: Consent from patient, Time-out performed, Hand hygiene observed, Stand sterile technique Location of Abscess: Right medial thigh Skin Preparation Agent: Hibiclens - Chlorhexidine Local Anesthesia: Lidocaine w epi 1% (2.5cc) Incised Abscess with Scalpel: #11 Pus Drained: Large (60cc), Purulent discharge, Bloody Post-Procedure / Complications: Drain placed, Culture obtained, Dressing applied, No complications, Condition improved, Tolerated procedure well, Patient stable Re-Eval/Medical Decision Med Decision/Clinical Course A lengthy discussion on opiates and opiate abuse. Shantelle is having pretty severe pain related to the infection and incision and drainage. We will treat her with oral Percocet. She assures me she is not going to self medicate with heroin. I told her and her loved one was with her that if she combined the 2 most likely kill her. She verbalizes understanding. She is going to come back tomorrow for a wound check and have the packing removed either here at the urgent care. Re-Evaluation/Progress : Time of Eval: 22:17 Patient Status: Condition improved Re-Evaluation/Progress Note: I&D performed. Discussed with patient physical exam findings, diagnosis, and plan for discharge. Follow-up and return to the ER instructions given. Patient agrees with plan for care and all questions were addressed. Counseled Regarding: Diagnosis, Need for follow-up, When/why to return to ED Discharge & Departure Impression: Primary Impression: Abscess Additional Impression: Cellulitis Site of cellulitis: extremity Site of cellulitis of extremity: lower extremity Laterality: unspecified laterality Qualified Code: L03.119 - Cellulitis of unspecified part of limb Disposition: Home Discharge Condition All VS Reviewed: Yes Condition: Improved Patient Instructions: Abscess (GEN), Cellulitis (ED) Additional Instructions: Thank you for entrusting us with your care. Do not drive tonight as you have been given sedating medications. Keflex four times daily for seven days. Bactrim twice daily for seven days. 1-2 Percocet every six hours as needed for pain. Do not drink alcohol, drive, or consume acetaminophen while taking Percocet. Do not use any heroin or any other opiates while under the influence of the Percocet as the combination can be life threatening. Keep the wound covered. Go to Urgent Care or return to the ER tomorrow to have the packing removed and the wound rechecked. Return to the ER with any new or worsening symptoms. Referrals: NOPCP (PCP) [facility] Scribe Attestation Portions of this note were transcribed by Skye Foley. I, Dr. Velez, personally performed the history, physical exam, and medical decision-making; I reviewed and confirmed the accuracy of the information in the transcribed note. Signed by: Harika Yu, 12/04/2016, 22:50 copies to: [facility] ; [facility] Louis Velez DO December 04, 2016 21:36 SKYE FOLEY December 04, 2016 21:58
[2016-12-04] MEDS ORDERED: HYDROmorphone 1 mg/mL Inj IM ONE (21:55)
[2016-12-04] MEDS ORDERED: Lidocaine 1%-Epi 1:100,000 50 mL Inj NERVEBLOCK ONE (21:55)
[2016-12-04] MEDS ORDERED: Clindamycin 150 mg/mL 2 mL Inj IM ONE (21:55)
[2016-12-04] MEDS ORDERED: Lidocaine 1%-Epi 1:100,000 20 mL Inj ONE (22:03)
[2016-12-04] MEDS ORDERED: _oxyCODONE/APAP 5-325 mg Tablet PO PRN (22:30)
[2016-12-04 23:14] VITALS: BP 136/83; PULSE 97; RESP 16; O2SAT 97
== END 2016-12-04 23:17 | disposition home or self-care (01) ==
LOC: SED 19:04
DX: L02.415 Cutaneous abscess of right lower limb (principal); L03.115 Cellulitis of right lower limb; Z88.5 Allergy status to narcotic agent
CPT/HCPCS: 10060; 87070; 87075; 87186; 87205; 96372; 99284; J1170

== ENCOUNTER 2016-12-05 22:37 | Emergency (ER) | payer OTHER ==
[~2016-12-05] VITALS: Ht 172.7 cm; Wt 200.0 kg
[2016-12-05 22:41] VITALS: BP 126/85; PULSE 98; RESP 16; O2SAT 99
--- NOTE | 2016-12-05 23:23 | ED.REPORT ---
HPI-Rash / Abscess Date of Service December 05, 2016 ED Provider: Louis Velez MD Patient is a 26 year old female who was seen on 12/04/16 for an abscess that she had for five days on her right thigh who presents to the ED for a recheck of the abscess. The patient reports that she has not used IV heroin for the past couple days. She is still taking the antibiotics she was prescribed along with the Percocet, which is helping with the pain. Nursing Notes Stated Complaint: ABSCESS RECHECK Chief Complaint: Skin Rash/Abscess Nursing Notes Reviewed: Yes Allergies: Coded Allergies: codeine (Verified Allergy, Intermediate, hives, 12/04/16) Scheduled ([clonidine]) 0.05 MG PO QID Please start this medication after the 0.1mg of Clonidine has completed ([clonidine]) 0.025 MG PO QID Please take this medication after the 0.05 dose of clonidine has finished Amoxicillin/Clav K 875-125 mg (Augmentin 875-125 mg) 1 Each Tablet 1 TABLET PO BID Clonidine (Catapres) 0.1 Mg Tablet 0.2 MG PO QID Please start today Clonidine (Clonidine) 0.1 Mg Tablet 0.1 MG PO QID Start this medication after the clonidine 0.2 medication is finished Scheduled PRN Naproxen (Naproxen) 500 Mg Tab 500 MG PO BID PRN PRN For Pain General Time Seen by MD: 23:22 Chief Complaint Abscess Hx Obtained From: Patient Arrived By: Walk-in Onset Occurred: 6 days ago Symptom Duration: Since onset Location: : Other (right thigh) Recent Healthcare: Recent doctor visit, Recent hospitalization Similar Sx Previous: Yes Past Medical History Past Medical History IV drug abuse Cellulitis Abscess Past Surgical History None reported Smoking History Unknown if Ever Smoker Social History Drug Use: IV drugs Other Social History: Good social support, Local resident Ambulatory Status Independent Review of Systems Review of Systems Note: abscess on right thigh Physical Exam Initial Vital Signs Vital Signs (First) Date Time Temp Pulse Resp B/P Pulse Ox O2 Delivery O2 Flow Rate FiO2 12/05/16 22:41 36.1 98 16 126/85 99 Room Air Initial VS: Reviewed General/Constitutional: Awake, Alert, No acute distress Skin: Warm, Dry healing cellulitis on right upper thigh less erythema less induration smaller in size Head / Eyes: Atraumatic, Normocephalic, PERRL, EOMI Respiratory / Chest: Atraumatic, No respiratory distress Upper Extremity / MS: Atraumatic, Full range of motion Lower Extremity / Pelvis / MS: Atraumatic, Full range of motion Neurologic: Oriented X3, Speech NL, No motor deficits, No sensory deficits Psychiatric: Affect NL, Mood NL Re-Eval/Medical Decision Med Decision/Clinical Course Wound culture showing gram-positive cocci. I think the wound is getting better. The incision certainly help. She is given a dose of Rocephin and clindamycin. She is going to be on a beta lactam and trimethoprim sulfa. While this looked at and couple of days. Re-Evaluation/Progress : Time of Eval: 00:36 Re-Evaluation/Progress Note: Discussed plan for treatment and discharge. The patient understands and agrees to the plan for discharge. All questions were addressed. Counseled Regarding: Diagnosis, Need for follow-up, When/why to return to ED Discharge & Departure Impression: Primary Impression: Cellulitis Site of cellulitis: extremity Site of cellulitis of extremity: lower extremity Laterality: right Qualified Code: L03.115 - Cellulitis of right lower limb Additional Impression: Abscess Disposition: Home Discharge Condition All VS Reviewed: Yes Condition: Stable Patient Instructions: Abscess (GEN), Cellulitis (ED) Additional Instructions: Continue with the antibiotics. The culture is not back yet. I would like this to be rechecked in 48 hours. Either come back here or see your primary care doctor. If it grows in size tomorrow, come back to the ER otherwise wait a day or two. Elevate your legs much as possible. Take 1-2 Percocet every 6 hours. As we discussed before do not combine this with any heroin or it can kill you. Do not drive tonight. Do not consume alcohol while taking the Percocet. It was nice to see you again. I am glad you are getting better. Referrals: [facility] Harika Attestation Portions of this note were transcribed by Tahmina Vega. I, Dr. Velez personally performed the history, physical exam and medical decision-making; I reviewed and confirmed the accuracy of the information in the transcribed note. Signed by:Harika Fang, 12/05/16 and 0150 copies to: [facility] Louis Velez DO December 05, 2016 23:23 Concha Vega December 05, 2016 23:34
[2016-12-05] MEDS ORDERED: oxyCODONE-Acetamin 5-325 mg Tablet PO ONE (23:30)
[2016-12-05] MEDS ORDERED: cefTRIAXone Inj 2,000 MG in Dextrose 5% Minibag Plus 50 ML IV ONE (23:30)
[2016-12-05] MEDS ORDERED: Clindamycin Inj 900 MG in IV Premix 1 EACH IV ONE (23:30)
[2016-12-06] MEDS ORDERED: _oxyCODONE/APAP 5-325 mg Tablet PO PRN (00:30)
[2016-12-06] MEDS ORDERED: cefTRIAXone Inj 1,000 MG, Lidocaine PF 1% Inj 2.1 ML in Syringe 0 EACH IM ONE (00:35)
[2016-12-06] MEDS ORDERED: Clindamycin 150 mg/mL 2 mL Inj IM ONE (00:35)
[2016-12-06 02:03] VITALS: BP 143/75; PULSE 100; RESP 16; O2SAT 100
== END 2016-12-06 02:03 | disposition home or self-care (01) ==
LOC: SED 22:37
DX: L03.115 Cellulitis of right lower limb (principal); L02.415 Cutaneous abscess of right lower limb; Z88.5 Allergy status to narcotic agent
CPT/HCPCS: 96372; 99284; J0696